=== PATIENT | female | born 1950 | race Caucasian/White ===

== ENCOUNTER 2016-08-18 10:53 | Outpatient (CLI) | payer MEDICAID | END 2016-08-18 10:54 | disposition home or self-care (01) | DX: R05 Cough (principal); R50.9 Fever, unspecified; C54.1 Malignant neoplasm of endometrium ==

== ENCOUNTER 2017-03-03 11:02 | Outpatient (CLI) | payer MEDICARE, MEDICAID | END 2017-03-03 11:03 | disposition critical access hospital (66) | LOC: EMS 11:02 | PROVIDERS: ATTEND Surgery | DX: R11.10 Vomiting, unspecified (principal); R19.7 Diarrhea, unspecified | CPT/HCPCS: A0425; A0429 ==

== ENCOUNTER 2017-03-03 11:19 | Emergency (ER) | payer MEDICARE, MEDICAID ==
[2017-03-03] MEDS ORDERED: SODIUM CHLORIDE 0.9% 1,000 ML IV ONE (12:07)
[2017-03-03] MEDS ORDERED: LOPERAMIDE 2 MG CAPSULE PO STA (12:07)
[2017-03-03] MEDS ORDERED: ONDANSETRON 4 MG/2 ML VIAL IVP STA (12:07)
--- NOTE | 2017-03-03 12:10 | ED Physician Documentation ---
PD HPI NVD - Stated complaint Stated Complaint: V/D - Chief complaint Chief Complaint: Abd Pain - History obtained from History obtained from: Patient - History of Present Illness Timing - onset: Other (66-year-old woman with hypertension, diabetes, and history of endometrial cancer, has completed as of a few months ago her chemotherapy and is in surveillance. Starting this morning after a smoothie she started having several episodes of vomiting and diarrhea. There is no associated abdominal pain but she does feel dizzy. She is on no blood from either end. No fevers or sick contacts.) Review of Systems Ten Systems: 10 systems reviewed and negative Constitutional: denies: Fever, Chills Cardiac: denies: Chest pain / pressure, Palpitations Respiratory: denies: Dyspnea, Cough GI: reports: Nausea, Vomiting, Diarrhea. 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 HEENT: Tonsil/Adenoidectomy - Present Medications Home Medications: Ambulatory Orders Medication Instructions Recorded Confirmed Acetaminophen [Pain Relief] 500 mg PO Q4H PRN 05/19/16 12/08/16 Cholecalciferol (Vitamin D3) 800 units PO DAILY 05/19/16 12/08/16 [Vitamin D3] Citalopram [CeleXA] 40 mg PO DAILY 05/19/16 12/08/16 Docusate Calcium [Carlito-Tin] 240 mg PO BID PRN 05/19/16 12/08/16 Fluticasone [Flonase] 1 spray INH DAILY PRN 05/19/16 12/08/16 Insulin Glargine [Lantus] 10 unit SUBQ QPM 05/19/16 12/08/16 Lisinopril [Zestril] 40 mg PO DAILY 05/19/16 12/08/16 Loratadine [Claritin] 10 mg PO DAILY 05/19/16 12/08/16 Ondansetron [Ondansetron Odt] 1 - 2 tab PO Q8H PRN 05/19/16 12/08/16 Polyethylene Glycol 3350 [Miralax] 17 gm PO DAILY PRN 05/19/16 12/08/16 Risperidone [Risperdal] 0.25 mg PO DAILY 05/19/16 12/08/16 Sennosides [Senna] 8.6 mg PO DAILY PRN 05/19/16 12/08/16 Simvastatin [Zocor] 40 mg PO QPM 05/19/16 12/08/16 buPROPion [Wellbutrin Sr] 100 mg PO BID 05/19/16 12/08/16 metFORMIN [Glucophage] 1,000 mg PO BID 05/19/16 12/08/16 raNITIdine [Zantac] 150 mg PO BID 05/19/16 12/08/16 Carvedilol [Coreg] 25 mg PO BID tablet 06/11/16 12/08/16 buPROPion [Wellbutrin Sr] 100 mg PO BID tablet 06/11/16 12/08/16 Clopidogrel [Plavix] 75 mg PO DAILY 06/23/16 12/08/16 Prochlorperazine Maleate 10 mg PO Q6H PRN 07/01/16 12/08/16 [Compazine] Ciprofloxacin HCl [Cipro] 500 mg PO BID #14 tablet 03/03/17 Loperamide [Imodium] 2 mg PO QID PRN #10 capsule 03/03/17 Promethazine [Phenergan] 25 - 50 mg PO Q6H PRN #15 tab 03/03/17 - Allergies Allergies/Adverse Reactions: Allergies Allergy/AdvReac Type Severity Reaction Status Date / Time Penicillins Allergy Anaphylaxis Verified 03/03/17 11:35 - Social History Does the pt smoke?: No Smoking Status: Never smoker Does the pt drink ETOH?: No Does the pt have substance abuse?: No - Family History Family history: reports: Non contributory - Immunizations Immunizations are current?: Yes PD ED PE NORMAL - Vitals Vital signs reviewed: Yes (She is hypotensive but not tachycardic) - General General: Alert and oriented X 3, No acute distress - HEENT HEENT: PERRL, EOMI - Neck Neck: Supple, no meningeal sign, No bony TTP - Cardiac Cardiac: RRR, No murmur - Respiratory Respiratory: No respiratory distress, Clear bilaterally - Abdomen Abdomen: Soft, Non tender - Derm Derm: Normal color, Warm and dry - Extremities Extremities: No edema, No calf tenderness / cord - Neuro Neuro: Alert and oriented X 3, No motor deficit, No sensory deficit - Psych Psych: Normal mood, Normal affect Results - Vitals Vitals: Vital Signs - 24 hr 03/03/17 03/03/17 03/03/17 11:31 11:45 12:00 Temperature 36.7 C Heart Rate 87 88 78 Respiratory 14 20 18 Rate Blood Pressure 76/48 L 78/47 L 76/46 L O2 Saturation 92 92 95 03/03/17 03/03/17 03/03/17 12:15 13:21 14:27 Temperature Heart Rate 80 71 70 Respiratory 20 20 18 Rate Blood Pressure 76/46 L 120/58 L 142/53 H O2 Saturation 97 97 96 Oxygen O2 Source Room air - EKG (time done) 1227 Rate: Rate (enter#) (79) Rhythm: NSR Hawkins: Normal QRS: Low voltage Ischemia: Normal ST segments. No: ST elevation c/w ischemia Computer interpretation: Agree with computer - Labs Labs: Laboratory Tests 03/03/17 03/03/17 03/03/17 12:50 12:55 12:55 WBC 18.0 H RBC 4.22 Hgb 14.0 Hct 42.7 MCV 101.2 H MCH 33.3 H MCHC 32.9 RDW 17.6 H Plt Count 252 MPV 7.5 L Neut # 15.3 H Lymph # 1.6 [place] # 1.0 Eos # 0.1 Baso # 0.0 Absolute Nucleated RBC 0.02 Nucleated RBCs 0.1 D-Dimer Sodium 141 Potassium 4.8 Chloride 111 Carbon Dioxide 20 L Anion Gap 10.0 BUN 23 H Creatinine 1.3 H Estimated GFR (MDRD) 41 L Glucose 165 H Lactic Acid Calcium 9.2 Magnesium 1.4 L Total Bilirubin 0.7 AST 15 ALT < 10 L Alkaline Phosphatase 53 Troponin I < 0.04 Total Protein 6.4 L Albumin 3.6 Globulin 2.8 Albumin/Globulin Ratio 1.3 Lipase 35 Urine Color Urine Clarity Urine pH Ur Specific [place] Urine Protein Urine Glucose (UA) Urine Ketones Urine Occult Blood Urine Nitrite Urine Bilirubin Urine Urobilinogen Ur Leukocyte Esterase Urine RBC Urine WBC Ur Squamous Epith Cells Urine Crystals Urine Bacteria Urine Mucus Ur Microscopic Review Urine Culture Comments 03/03/17 03/03/17 03/03/17 12:55 14:28 14:45 WBC RBC Hgb Hct MCV MCH MCHC RDW Plt Count MPV Neut # Lymph # [place] # Eos # Baso # Absolute Nucleated RBC Nucleated RBCs D-Dimer > 1050.0 H Sodium Potassium Chloride Carbon Dioxide Anion Gap BUN Creatinine Estimated GFR (MDRD) Glucose Lactic Acid 2.2 Calcium Magnesium Total Bilirubin AST ALT Alkaline Phosphatase Troponin I Total Protein Albumin Globulin Albumin/Globulin Ratio Lipase Urine Color DARK YELLOW Urine Clarity CLOUDY Urine pH 6.0 Ur Specific [place] 1.025 Urine Protein TRACE Urine Glucose (UA) NEGATIVE Urine Ketones NEGATIVE Urine Occult Blood MODERATE H Urine Nitrite NEGATIVE Urine Bilirubin NEGATIVE Urine Urobilinogen 0.2 (NORMAL) Ur Leukocyte Esterase SMALL H Urine RBC 0-5 Urine WBC 6-10 H Ur Squamous Epith Cells MANY Squamous H Urine Crystals 0-2 Calcium Oxalate Urine Bacteria Many H Urine Mucus Few Strands Ur Microscopic Review INDICATED Urine Culture Comments NOT INDICATED - Rads (name of study) CT Angio chest Radiology: EMP read contemporaneously (neg for at least large PE) PD MEDICAL DECISION MAKING - ED course ED course: 66-year-old woman with history of endometrial cancer presents with vomiting and diarrhea. Initially she is noted to be borderline hypoxic and hypotensive. The hypoxemia was a single reading in the hypotension easily responded to fluids. She was administered IV fluids, Zofran, Imodium. She felt much better. She was noted to have a leukocytosis and evidence of UTI which was treated with Cipro, her d-dimer was high but her chest CT was grossly negative. She passed an oral challenge and requested discharge. Departure - Departure Disposition: 01 Home, Self Care Clinical Impression: Vomiting Qualifiers: Vomiting type: unspecified Vomiting Intractability: non-intractable Nausea presence: with nausea Qualified Code(s): R11.2 - Nausea with vomiting, unspecified Diarrhea Qualifiers: Diarrhea type: unspecified type Qualified Code(s): R19.7 - Diarrhea, unspecified Hypotension Qualifiers: Hypotension type: unspecified hypotension type Qualified Code(s): I95.9 - Hypotension, unspecified Urinary tract infection Qualifiers: Urinary tract infection type: acute pyelonephritis Qualified Code(s): N10 - Acute pyelonephritis Condition: Good Record reviewed to determine appropriate education?: Yes Instructions: ED Diarrhea Viral Prescriptions: Ciprofloxacin HCl [Cipro] 500 mg PO BID #14 tablet Loperamide [Imodium] 2 mg PO QID PRN #10 capsule PRN Reason: Diarrhea Promethazine [Phenergan] 25 - 50 mg PO Q6H PRN #15 tab PRN Reason: Nausea / Vomiting Comments: Drink plenty of fluids. Return anytime if worse or if you run a high fever. Call your doctor to arrange a follow-up appointment, make the next available appointment.
[2017-03-03] MEDS ORDERED: SODIUM CHLORIDE FLUSH 0.9% 10 ML SYRINGE IVP ONE (12:14)
[2017-03-03] MEDS ORDERED: ONDANSETRON 4 MG/2 ML VIAL ONE (12:41)
[2017-03-03] MEDS ORDERED: LOPERAMIDE 2 MG CAPSULE PO ONE (12:41)
[2017-03-03 13:03] LABS: BASOPHILS % (AUTO) 0.3 %; EOSINOPHILS # (AUTO) 0.1 10^3/uL (0.0-0.7); EOSINOPHILS % (AUTO) 0.4 %; HCT - HEMATOCRIT 42.7 % (37.0-47.0); LYMPHOCYTES # (AUTO) 1.6 10^3/uL (1.5-3.5); LYMPHOCYTES % (AUTO) 8.9 %; MEAN CORPUSCULAR HEMOGLOBIN 33.3 pg (27.0-31.0); MEAN CORPUSCULAR HGB CONC 32.9 g/dL (32.0-36.0); MEAN CORPUSCULAR VOLUME 101.2 fL (81.0-99.0); MEAN PLATELET VOLUME 7.5 fL (7.9-10.8); MONOCYTES % (AUTO) 5.4 %; NEUTROPHILS # (AUTO) 15.3 10^3/uL (1.5-6.6); NUCLEATED RED BLOOD CELLS AUTO 0.1 /100WBC; RED BLOOD COUNT 4.22 10^6/uL (4.20-5.40); RED CELL DISTRIBUTION WIDTH 17.6 % (12.0-15.0)
[2017-03-03 13:12] LABS: ALBUMIN/GLOBULIN RATIO 1.3 (1.0-2.2); BILIRUBIN,TOTAL 0.7 mg/dL (0.2-1.0); BUN - BLOOD UREA NITROGEN 23 mg/dL (6-20); CALCIUM 9.2 mg/dL (8.5-10.3); CARBON DIOXIDE - CO2 20 mmol/L (21-32); CHLORIDE 111 mmol/L (101-111); CREATININE 1.3 mg/dL (0.4-1.0); GFR - MDRD 41 (>89); GLUCOSE 165 mg/dL (70-100); LIPASE 35 U/L (22-51); MAGNESIUM 1.4 mg/dL (1.7-2.8); POTASSIUM 4.8 mmol/L (3.5-5.0); SODIUM 141 mmol/L (135-145); TOTAL PROTEIN 6.4 g/dL (6.7-8.2)
[2017-03-03] MEDS ORDERED: MAGNESIUM SULFATE 2 GRAM 50 ML IV ONE ×2 (14:13→14:20)
[2017-03-03] MEDS ORDERED: IOPAMIDOL-300 100 ML VIAL IVP ONE (14:30)
--- NOTE | 2017-03-03 15:00 | CT Preliminary Report ---
Exam: CT Chest Angio (PE) IMPRESSION: 1. Normal pulmonary CT angiogram. No pulmonary emboli. 2. Remote left nephrectomy. [facility] SITE ID: [id number]
[2017-03-03 15:12] LABS: BILIRUBIN,URINE NEGATIVE (NEGATIVE); UA w/ MICROSCOPIC CHARGE YES
--- NOTE | 2017-03-03 15:14 | CT Report ---
EXAM: CT ANGIOGRAM CHEST EXAM DATE: 03/03/2017 02:39 PM. CLINICAL HISTORY: Hypoxemia, hypotension, endometrial cancer. (Chemotherapy 2 months ago.) Vomiting. COMPARISON: 06/11/2016. TECHNIQUE: Routine helical imaging was performed through the chest in the pulmonary arterial phase. I V Contrast: 50 cc Isovue-300. Please note this lady was unable to raise her arms. Reconstructions: [facility] 3-D MIP reconstructions.Sagittal and coronal. In accordance with CT protocol optimization, one or more of the following dose reduction techniques w ere utilized for this exam: automated exposure control, adjustment of mA and/or KV based on patient s ize, or use of iterative reconstructive technique. FINDINGS: Pulmonary Arteries: Diagnostic quality: Adequate through the segmental arteries. No evidence for acute or chronic pulmona ry emboli. RV/LV is within normal limits. There is no interventricular septal bowing. There is no reflux of cont rast material in the IVC. Lungs/Pleura: No consolidation, nodules, or edema. No effusions or pneumothorax. Mediastinum: Normal. No cardiac enlargement or adenopathy. Thoracic Aorta: Unremarkable. Upper Abdomen: Left nephrectomy. Visualized portion of the right kidney unremarkable. Other: None. IMPRESSION: 1. Normal pulmonary CT angiogram. No pulmonary emboli. 2. Remote left nephrectomy. [facility] Referring Provider Line: [phone] SITE ID: [id number]
[2017-03-03 15:25] LABS: UR CULTURE IF IND NOT INDICATED
[2017-03-03] MEDS ORDERED: CIPROFLOXACIN 250 MG TABLET PO STA (15:31)
[2017-03-03 16:45] VITALS: BP 127/43
== END 2017-03-03 16:45 | disposition home or self-care (01) ==
LOC: EDUNIT# → ED 11:19
DX: R11.2 Nausea with vomiting, unspecified (principal); R19.7 Diarrhea, unspecified; I95.9 Hypotension, unspecified; N10 Acute pyelonephritis; I10 Essential (primary) hypertension; G81.90 Hemiplegia, unspecified affecting unspecified side; E78.00 Pure hypercholesterolemia, unspecified; E11.9 Type 2 diabetes mellitus without complications; Z79.4 Long term (current) use of insulin; Z86.73 Personal history of transient ischemic attack (TIA), and cerebral infarction without residual deficits; Z85.9 Personal history of malignant neoplasm, unspecified
CPT/HCPCS: 36415; 71275; 80053; 81001; 83605; 83690; 83735; 84484; 85025; 85379; 87077; 87086; 87181; 93005; 96374; 96375; 99284; 99285; A9270; Q9967; 81003

== ENCOUNTER 2017-03-25 13:00 | Outpatient (CLI) | payer MEDICARE, MEDICAID ==
--- NOTE | 2017-03-25 19:06 | CONSULTATION NOTE ---
Palliative Care Consultation - Referral Referring Provider: JOHN Mckee Time of Visit: 13:00 Referral setting: Home (andSeen in home setting, which is [facility], due to taxing and considerable effort required to leave the home secondary to L hemiparesis s/p CVA, incontinence, and difficulty following instructions.) - Information Sources History obtained from: Patient, Caregiver Exam limitations: Clinical condition (Expressive aphasia) - History of Present Illness Brief History of Present Illness: Thank you, JOHN Mckee, for asking the palliative care consult service to be involved in the care of your patient. I am asked to provide support regarding medicine review and reconciliation, symptom management, intermittent followup as needed, and goals of care. 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 In May 2016 she was diagnosed with endometrial cancer and underwent surgical incision. She had a port placed 06/11/2017 and subsequent weekly chemotherapy of carbo-Taxol for 12 weeks completed 09/08/2016. This was with Dr. Louis at [facility]. The patient and her family decided to not pursue adjuvant radiation therapy. Her last followup visit with Dr. Louis was 12/08/2016, and she was to have moved onto surveillance with her housekeeping room inspector/oncologist from [facility], however, getting transportation to the clinic is problematic. She will see Dr. Louis only as needed in the future. She was most recently at the ED on 03/03/2017 for nausea and vomiting, and was diagnosed with a UTI and treated with ciprofloxacin twice a day for 7 days and loperamide and promethazine for diarrhea and nausea/vomiting. Normally with a UTI she becomes symptomatic with seizures; however, with this UTI episode, she exhibited vomiting and diarrhea. Today she is pleasant, alert, relaxed, and cooperative. She is mobile with a walker She denies musculoskeletal pain, reporting that she isnot in pain since participating [facility]. Her left side hemiparesis and expressive aphasia are stable. She is incontinent of bladder, the court registry officer reports it is because she is "lazy" and does not want to get up from her chair. Resident reports she spends her time watching TV in her room. She has occasional nausea which is alleviated with her PRN medications. She also has intermittent loose stools, diarrhea, and hemorrhoids relieved by PRN medications. Sheet Turner reports the patient does not do well with changes in her routine and does not follow directions well, so getting her out of the [facility] and to clinic appointments is very taxing and considerable effort. Also her daughter does not drive or have a car. Patient states she has no concerns or worries, and that she is satisfied with her quality of life. Her daughter visits her about once a week. Information was obtained from patient, caretaking staff, and the EMR chart notes from ED. Medical/Surgical History - Past Medical History Cardiovascular: reports: Hypertension, High cholesterol Respiratory: reports: Sleep apnea Neuro: reports: CVA, Seizure disorder Endocrine/Autoimmune: reports: Type 2 diabetes GI: reports: GERD, Hemorrhoids NURSE PRACTICAL: reports: Other (Endometrial cancer 05/2016, treated with carbo-Taxol for 12 weeks, completed 09/08/2016.) : reports: Incontinence, Other (CKD III) HEENT: reports: Chronic vision loss Psych: reports: Depression Musculoskeletal: reports: Hemiplegia Derm: reports: None MRSA Hx?: No - Past Surgical History General: reports: Colonoscopy, Other (Unilateral nephrectomy - accident 1963) /NURSE PRACTICAL: reports: Hysterectomy, Oophrectomy (bilateral salpingo-oophorectomy 2015) HEENT: reports: Tonsil/Adenoidectomy - Substance History Use: Uses substance without health or social issues: NONE (Never smoker, no ETOH , no substance abuse) Social History - Living Situation Living arrangement: prison (Has been living at [facility] for at least 8 years) Living Situation: With caregiver(s) Support System: Daughter lives locally in [place]. Visits her weekly. Medications/Allergies - Medications Home Medications: Ambulatory Orders Medication Instructions Recorded Confirmed Acetaminophen [Pain Relief] 500 mg PO Q4H PRN 05/19/16 03/25/17 Cholecalciferol (Vitamin D3) 800 units PO DAILY 05/19/16 03/25/17 [Vitamin D3] Citalopram [CeleXA] 40 mg PO DAILY 05/19/16 03/25/17 Fluticasone [Flonase] 1 spray INH DAILY PRN 05/19/16 03/25/17 Insulin Glargine [Lantus] 10 unit SUBQ QPM 05/19/16 03/25/17 Lisinopril [Zestril] 40 mg PO DAILY 05/19/16 03/25/17 Loratadine [Claritin] 10 mg PO DAILY 05/19/16 03/25/17 Ondansetron [Ondansetron Odt] 1 - 2 tab PO Q8H PRN 05/19/16 03/25/17 Polyethylene Glycol 3350 [Miralax] 17 gm PO DAILY PRN 05/19/16 03/25/17 Risperidone [Risperdal] 0.25 mg PO DAILY 05/19/16 03/25/17 Sennosides [Senna] 8.6 mg PO DAILY PRN 05/19/16 03/25/17 Simvastatin [Zocor] 40 mg PO QPM 05/19/16 03/25/17 buPROPion [Wellbutrin Sr] 100 mg PO BID 05/19/16 03/25/17 metFORMIN [Glucophage] 1,000 mg PO BID 05/19/16 03/25/17 raNITIdine [Zantac] 150 mg PO BID 05/19/16 03/25/17 Carvedilol [Coreg] 25 mg PO BID tablet 06/11/16 03/25/17 Clopidogrel [Plavix] 75 mg PO DAILY 06/23/16 03/25/17 Prochlorperazine Maleate 10 mg PO Q6H PRN 07/01/16 03/25/17 [Compazine] Loperamide [Imodium] 2 mg PO QID PRN #10 capsule MDD 8 03/03/17 03/25/17 tabs Anusol/Hydrocortisone Rectal Cream 1 each TOP DAILY PRN 03/26/17 03/26/17 - Allergies Allergies/Adverse Reactions: Allergies Allergy/AdvReac Type Severity Reaction Status Date / Time Penicillins Allergy Anaphylaxis Verified 03/03/17 11:35 Review of Systems - Ears, Nose & Throat Ears, Nose & Throat: reports: Other (Episodic sinus pain/headache, R side of head/face) - Cardiovascular Cariovascular: denies: Chest pain, Edema, Exertional dyspnea, Decr. exercise tolerance - Respiratory Respiratory: denies: SOB at rest, SOB with exertion - Gastrointestinal Gastrointestinal: reports: Diarrhea, Nausea (episodic). denies: Vomiting, Poor appetite - Genitourinary Genitourinary: reports: Incontinence. denies: Dysuria - Musculoskeletal Musculoskeletal: denies: Muscle pain (Denies musculoskeletal pain since starting exercise program at her [facility].), Back pain - Neurological Neurological: reports: Focal weakness (left side weakness s/p distant CVA event) , Headache (occasional sinus headaches), Other (problems finding words. They're "in my head, but I can't say them."). denies: Memory problems - Psychiatric Psychiatric: denies: Depression, Anxiety Physical Examination - Vital Signs Temperature: 96.9 F Pulse Rate: 57 O2 Saturation: 95 Blood Pressure: 135/85 - Physical Exam General Appearance: positive: No acute distress, Alert Eyes Bilateral: positive: EOMI, No lid inflammation, Conjunctivae nml, No scleral icterus ENT: positive: No signs of dehydration Neck: positive: No JVD, Trachea midline Respiratory: positive: No respiratory distress, Breath sounds nml Cardiovascular: positive: Regular rate & rhythm, No murmur Abdomen: positive: Non-tender, No organomegaly, Nml bowel sounds, Other (obese) Skin: positive: No symptoms Extremities: positive: Pedal edema (very mild ankle edema) Neurologic/Psychiatric: positive: Mood/affect nml, Slurred/abnml speech ( Significant word search and expressive aphasia, secondary to CVA) Palliative Care - POLST Patient has POLST: Yes POLST Status: Full Code Pain: No pain Drowsiness: None Nausea: Mild (1-3) Anxiety: None Dyspnea: None Anorexia: None Insomnia: Sleeps well Constipation: No Feelings of wellbeing/Perceived Quality of Life: Comment (Perceives she has a good quality of life and likes living here.) Performance Status: Current level of functioning: Left-sided hemiparesis and expressive aphasia s/p CVA in 2009. Ambulates with a walker. Incontinent, but this may be "involuntary " as she has been able to control her urination when motivated (for example, when rewarded with soda pop). Once the reward system was discontinued, she became unmotivated and was incontinent again. Palliative Care Performance Status: 60% - Palliative Care Discussion: Patient/Family understanding of the illness: Patient likely has mild dementia, but has some understanding of her health situation, and her history of stroke and cancer. It is difficult to determine the extent of her insight due to her significant expressive aphasia. Information preferences: Contact daughter prior to planned visits. Daughter did not respond to my voicemail this time. Most important goals: Patient is still making her medical decisions, in consultation with her daughter. Today we discussed her goals and wishes, and she confirmed that she would want full treatment and is agreeable to hospitalization if necessary. Her POLST was dated from 2009, CPR and full code, and she confirmed she is satisfied with that. Patient/Family concerns: Patient had no questions or concerns today. The caregivers concern was obtaining some medical oversight and ability to reorder medicines since it is a taxing and considerable effort for the patient to get to the clinic. Impression and Recommendations - Palliative Care Impression: This is a 66-year-old woman who underwent 12 weeks of chemotherapy for endometrial cancer earlier this year. She also has residual effects from a 2009 CVA, these include left-sided hemiparesis and expressive aphasia. She is incontinent and has a history of UTIs. She has no urgent medical issues presently, but because of her history of cancer, and the taxing and considerable effort of getting her to clinic for medical care, she can benefit from palliative care for medical oversight, medicine reconciliation, and support for advanced care planning. Recommendations/Counseling Done: 1. History of endometrial cancer: Chemotherapy successfully completed 6 months ago. Stable and asymptomatic. She has a housekeeping room inspector/oncologist at but is not currently following up due to transport issues. Monitor, and follow up with Dr Louis as needed. 2. Loose stools: Episodic. Use imodium as needed. 3. Hemorrhoids: Stable, episodic. Use Anusol (hydrocortisone cream) as needed. 4. Advanced care planning: Reviewed with patient her POLST dated from 2009, she confirmed her wishes had not changed, and signed it. Reconciled medications, wrote new scripts for 8 of the medications. Time Spent: 60 minutes with greater than 50% of this done in coordination of care with court registry officer, evaluation of symptom burden and counseling regarding advanced care planning.
== END 2017-03-25 13:01 | disposition home or self-care (01) ==
LOC: PC 13:00
PROVIDERS: ATTEND Nurse Practitioner
DX: Z51.5 Encounter for palliative care (principal); Z85.42 Personal history of malignant neoplasm of other parts of uterus; R19.7 Diarrhea, unspecified; K64.9 Unspecified hemorrhoids; I69.320 Aphasia following cerebral infarction; R32 Unspecified urinary incontinence; R11.0 Nausea; I10 Essential (primary) hypertension; E11.9 Type 2 diabetes mellitus without complications; F32.9 Major depressive disorder, single episode, unspecified; Z79.4 Long term (current) use of insulin; Z79.84 Long term (current) use of oral hypoglycemic drugs

== ENCOUNTER 2017-07-30 15:58 | Outpatient (CLI) | payer MEDICARE, MEDICAID ==
--- NOTE | 2017-07-30 16:09 | CONSULTATION NOTE ---
Palliative Care Follow Up - Referral Referring Provider: JOHN Mckee Time of Visit: 07/30/17 11:35 - 12:15 Referral setting: Adult Family Home (Seen in home setting, which is an adult family home, due to taxing and considerable effort required to leave the home secondary to L hemiparesis s/p CVA, incontinence, and difficulty following instructions.) - Information Sources Records reviewed: Previous records reviewed History/Review of Systems obtained from: Patient, Caregiver Exam limitations: Clinical condition (expressive aphasia) - History of Present Illness Update Brief HPI Update: This is a 66-year-old woman with a history of endometrial cancer from May 2016 and a 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 She continues at her baseline, being alert, pleasant, articulate within the parameters of her expressive aphasia, and cooperative. She reports being very happy with her quality of life. She participates in the morning exercise classes 5 days per week which are sponsored by the [facility] where she resides. These classes work on strengthening and mobility of upper and lower extremities, and she finds she is more ambulatory and less stiff and painful since participating in these classes. The caregiver reports she is at baseline for her incontinence of bladder (she cannot tell when she needs to go to the bathroom until it is too late, and she also suffers from urge incontinence). She also has occasional stress incontinence of bowel, which happens when laughing or coughing. She also reports a new, dry cough. Her appetite is good, and her weight is stable, ranging from 220 - 225 lbs. Her waist measurement is 121 cm (47.5 inches) and hip 138.5cm (54.5 inches), a yqjsf-rh-gzs ratio of 0.87, which puts her at high risk of developing heart disease and DM2. With the participation of the [facility] marketing outreach coordinator, I completed a pre-authorization request from [employer] for incontinence supplies, along with a letter of medical necessity and faxed it back to the supply company. Social History - Living Situation Living arrangement: Adult family home ([facility] in [place]) Living Situation: With caregiver(s) Support System: Has been living at [facility] for many years. Daughter lives locally in [place] and visits regularly. Medications/Allergies - Medications Home Medications: Ambulatory Orders Medication Instructions Recorded Confirmed Acetaminophen [Pain Relief] 500 mg PO Q4H PRN 05/19/16 03/25/17 Cholecalciferol (Vitamin D3) 800 units PO DAILY 05/19/16 03/25/17 [Vitamin D3] Citalopram [CeleXA] 40 mg PO DAILY 05/19/16 03/25/17 Fluticasone [Flonase] 1 spray INH DAILY PRN 05/19/16 03/25/17 Insulin Glargine [Lantus] 10 unit SUBQ QPM 05/19/16 03/25/17 Lisinopril [Zestril] 40 mg PO DAILY 05/19/16 03/25/17 Loratadine [Claritin] 10 mg PO DAILY 05/19/16 03/25/17 Ondansetron [Ondansetron Odt] 1 - 2 tab PO Q8H PRN 05/19/16 03/25/17 Polyethylene Glycol 3350 [Miralax] 17 gm PO DAILY PRN 05/19/16 03/25/17 Sennosides [Senna] 8.6 mg PO DAILY PRN 05/19/16 03/25/17 Simvastatin [Zocor] 40 mg PO QPM 05/19/16 03/25/17 buPROPion [Wellbutrin Sr] 100 mg PO BID 05/19/16 03/25/17 metFORMIN [Glucophage] 1,000 mg PO BID 05/19/16 03/25/17 raNITIdine [Zantac] 150 mg PO BID 05/19/16 03/25/17 risperiDONE [Risperdal] 0.25 mg PO DAILY 05/19/16 03/25/17 Carvedilol [Coreg] 25 mg PO BID tablet 06/11/16 03/25/17 Clopidogrel [Plavix] 75 mg PO DAILY 06/23/16 03/25/17 Prochlorperazine Maleate 10 mg PO Q6H PRN 07/01/16 03/25/17 [Compazine] Loperamide [Imodium] 2 mg PO QID PRN #10 capsule MDD 8 03/03/17 03/25/17 tabs Anusol/Hydrocortisone Rectal Cream 1 each TOP DAILY PRN 03/26/17 03/26/17 Benzonatate 100 mg PO TID PRN 07/30/17 07/30/17 Guaifenesin [Tussin] 10 ml PO .Q4-6HRS PRN 07/30/17 07/30/17 - Allergies Allergies/Adverse Reactions: Allergies Allergy/AdvReac Type Severity Reaction Status Date / Time Penicillins Allergy Anaphylaxis Verified 03/03/17 11:35 Review of Systems - Constitutional Constitutional: reports: Weight stable (Ranges between 220 - 225 lbs. Her waist is 121 cm (47.5 inches) and hip is 138.5cm (54.5 inches)). denies: Poor appetite - Ears, Nose & Throat Ears, Nose & Throat: reports: Postnasal drainage, Other (episodic headaches, relieved with Tylenol) - Cardiovascular Cardiovascular: denies: Chest pain, Exertional dyspnea, Decr. exercise tolerance - Respiratory Respiratory: reports: Cough. denies: SOB at rest, SOB with exertion - Gastrointestinal Gastrointestinal: reports: Good appetite. denies: Constipation, Diarrhea, Nausea, Vomiting - Genitourinary Genitourinary: reports: Urgency (occasional stress incontinence), Incontinence. denies: Dysuria, Flank pain - Musculoskeletal Musculoskeletal: reports: Assistive devices (supposed to use cane, but often doesn't). denies: Back pain, Muscle aches (the regular exercise program really helps), Stiffness - Psychiatric Psychiatric: denies: Depression, Behavior disturbances Physical Exam - Vital Signs Temperature: 97.4 F Pulse Rate: 71 O2 Saturation: 97 Blood Pressure: 138/90 - Physical Exam General Appearance: positive: No acute distress, Alert Eyes Bilateral: positive: EOMI, No lid inflammation, Conjunctivae nml, No scleral icterus ENT: positive: No signs of dehydration Neck: positive: Thyroid nml, No JVD, Trachea midline Cardiovascular: positive: Regular rate & rhythm, No murmur Respiratory: positive: Chest non-tender, No respiratory distress, Breath sounds nml Abdomen: positive: Soft, Obese Skin: positive: No symptoms Extremities: positive: Nml appearance, Pedal edema (mild, +1) Neurologic/Psychiatric: positive: Oriented x3, Mood/affect nml, Slurred/abnml speech (aphasia; word search) Palliative Care - POLST Patient has POLST: Yes POLST Status: Full Code Pain: No pain Depression: None Anorexia: None Constipation: No Feelings of wellbeing/Perceived Quality of Life: Good - Palliative Care Discussion: POLST is full code and full treatment. I left a voicemail with the daughter outlining the purpose and results of the visit and invited her to call back with questions and concerns. There are no changes or alterations to the patient 's goals of care. She is currently quite content with her quality of life and has no medical or psychological concerns or questions. Impression and Recommendations - Palliative Care Impression: This is a 66-year old woman who lives with residual effects from a 2009 CVA: L side hemiparesis and expressive aphasia. She also underwent chemotherapy treatment about a year ago. She is stable at her baseline, and her POLST is full code. Her weight is excessive, and her zscwe-pv-gqx ratio of 0.87 puts her at high risk to develop coronary and diabetic disease. She would benefit from maintaining a health diet, practicing portion control, decreasing consumption of sweets and soda pop. She benefits from continued participation in the exercise program provided by the adult family [facility], as well as Palliative Care oversight since it is a taxing and considerable effort to leave the adult family home. Recommendations/Counseling Done: Overweight: The patient's zqaqd-cl-juy ratio (0.87) puts her at high risk of developing coronary disease and Type 2 diabetes. She would benefit from altering her diet to lose some weight particularly abdominal fat, by portion control, decreasing intake of sweet and sweet drinks (including fruit juices), and continuing with the exercise program provided by the facility. Incontinence of bladder: Signed and returned [employer]'s preauthorization forms and request for a letter of medical necessity. This is for supplies of adult briefs, gloves, and protective pads. Cough, acute: Ordered guaifenesin 100mg/5ml. 10ml PO Q4-6 hours as needed and benzonatate 100 mg cap, 1 cap PO TID prn for cough. Advanced care planning: Patient's goals of care are prolongation of life, and full code treatment. She expresses satisfaction with her quality of life at [facility]. Time Spent: 40 minutes were spent with more than 50% of the time spent on counseling, education, and coordination of care.
== END 2017-07-30 15:59 | disposition home or self-care (01) ==
LOC: PC 15:58
PROVIDERS: ATTEND Nurse Practitioner
DX: Z51.5 Encounter for palliative care (principal); E66.9 Obesity, unspecified; R32 Unspecified urinary incontinence; R05 Cough; I69.354 Hemiplegia and hemiparesis following cerebral infarction affecting left non-dominant side; I69.320 Aphasia following cerebral infarction; Z85.89 Personal history of malignant neoplasm of other organs and systems

== ENCOUNTER 2017-11-12 16:16 | Outpatient (CLI) | payer MEDICARE, MEDICAID ==
[2017-11-12 13:05] LABS: BASOPHILS # (AUTO) 0.1 10^3/uL (0.0-0.1); BASOPHILS % (AUTO) 0.6 %; EOSINOPHILS # (AUTO) 0.2 10^3/uL (0.0-0.7); EOSINOPHILS % (AUTO) 2.3 %; HGB - HEMOGLOBIN 12.6 g/dL (12.0-16.0); LYMPHOCYTES # (AUTO) 1.4 10^3/uL (1.5-3.5); LYMPHOCYTES % (AUTO) 13.6 %; MEAN CORPUSCULAR HEMOGLOBIN 34.5 pg (27.0-31.0); MEAN CORPUSCULAR HGB CONC 33.5 g/dL (32.0-36.0); MEAN CORPUSCULAR VOLUME 102.9 fL (81.0-99.0); MEAN PLATELET VOLUME 8.1 fL (7.9-10.8); MONOCYTES # (AUTO) 0.9 10^3/uL (0.0-1.0); MONOCYTES % (AUTO) 8.8 %; NEUTROPHILS # (AUTO) 7.5 10^3/uL (1.5-6.6); NEUTROPHILS % (AUTO) 74.7 %; PLT - PLATELET COUNT 254 10^3/uL (130-450); RED BLOOD COUNT 3.65 10^6/uL (4.20-5.40); RED CELL DISTRIBUTION WIDTH 15.9 % (12.0-15.0)
[2017-11-12 13:16] LABS: HB2 TOTAL 13.7 g/dL; HEMOGLOBIN A1C 0.52 g/dL; HEMOGLOBIN A1C % 5.6 % (4.6-6.2)
[2017-11-12 13:34] LABS: ALBUMIN 3.8 g/dL (3.2-5.5); ALBUMIN/GLOBULIN RATIO 1.2 (1.0-2.2); ALKALINE PHOSPHATASE 54 IU/L (42-121); ALT ALANINE AMINOTRANSFERASE 10 IU/L (10-60); AST ASPARTATE AMINOTRANSFERASE 18 IU/L (10-42); BILIRUBIN,TOTAL 0.6 mg/dL (0.2-1.0); BUN - BLOOD UREA NITROGEN 28 mg/dL (6-20); CALCIUM 9.2 mg/dL (8.5-10.3); CARBON DIOXIDE - CO2 22 mmol/L (21-32); CHLORIDE 108 mmol/L (101-111); CHOLESTEROL 158 mg/dL; CREATININE 1.3 mg/dL (0.4-1.0); GFR - MDRD 41 (>89); GLUCOSE 109 mg/dL (70-100); HDL CHOLESTEROL 52 mg/dL; LDL CHOLESTEROL,CALCULATED 80 mg/dL; LDL/HDL RATIO 1.5 (<4.4); SODIUM 138 mmol/L (135-145); VLDL CHOLESTEROL 26 mg/dL
== END 2017-11-12 16:17 | disposition home or self-care (01) ==
LOC: LAB.N 16:16
PROVIDERS: ATTEND Nurse Practitioner Family
DX: I10 Essential (primary) hypertension (principal); E11.9 Type 2 diabetes mellitus without complications; E78.5 Hyperlipidemia, unspecified
CPT/HCPCS: 36415; 80053; 80061; 82043; 83036; 83721; 84443; 85025

== ENCOUNTER 2018-07-20 13:20 | Outpatient (CLI) | payer MEDICARE, MEDICAID ==
--- NOTE | 2018-07-20 18:25 | CONSULTATION NOTE ---
Palliative Care Follow Up - Referral Referring Provider: JOHN Mckee Time of Visit: 07/20/2018. 13:20 - 14:00 Referral setting: Adult Family Home (Seen in home setting, which is an adult family home, due to taxing and considerable effort required to leave the home secondary to L hemiparesis s/p CVA, incontinence, and difficulty following instructions.) Referral Reason: Constipation and loose stools - Information Sources Records reviewed: Previous records reviewed History/Review of Systems obtained from: Patient, Caregiver Exam limitations: Clinical condition (Expressive aphasia) - History of Present Illness Update Brief HPI Update: This is a 66-year-old woman with a history of endometrial cancer from May 2016 and a 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 Medical history: h/o endometrial cancer (dx May 2016); DM II, h/o CVA/stroke (2008); CKD III; seizure disorder; HTN; HLD. She remains at her baseline: alert, pleasant, articulate within the parameters of her expressive aphasia, and cooperative. She is ambulatory with a cane, but often doesn't use it. Provided education and encouragement on consistently using it in the house. She has occasional N/V. She had projectile vomiting twice last week within a short time period. She re cuperated and has been fine since then. She is at her baseline confusion and short-term memory deficit. She is incontinent of bowel/bladder. She has moments of lightheadedness. [facility] dentist/owner reports BPs are consistently within normal ranges of 110s-130s, 80s- 90s. Patient reports heartburn symptoms and would like Tums. She also uses ranitidine daily. She has sleep apnea but doesn't like the CPAP and has never used it while the current dentist/owner has been here Family visits her on most . She is cheerful, appears content and is enjoying having the [facility] dentist/owner's baby around the residence. She has a good appetite and has gained weight (see ROS). [facility] dentist/owner notes the weight gain started when their fruit coordinator started coming less. Now it's about 7 hours or less of activity per week instead of 12. Social History - Living Situation Living arrangement: Adult family home ([facility] [address] in [place]) Living Situation: With caregiver(s) Support System: Is a long-time resident of [facility], she was there prior to the current dentist/owner, so that's more than 7 years. Her daughter lives in [place] and visits usually on . Medications/Allergies - Medications Home Medications: Ambulatory Orders Medication Instructions Recorded Confirmed Acetaminophen [Pain Relief] 500 mg PO Q4H PRN 05/19/16 03/25/17 Cholecalciferol (Vitamin D3) 800 units PO DAILY 05/19/16 07/20/18 [Vitamin D3] Citalopram [CeleXA] 40 mg PO DAILY 05/19/16 07/20/18 Fluticasone [Flonase] 1 spray INH DAILY PRN 05/19/16 07/20/18 Insulin Glargine [Lantus] 10 unit SUBQ QPM 05/19/16 07/20/18 Lisinopril [Zestril] 40 mg PO DAILY 05/19/16 07/20/18 Loratadine [Claritin] 10 mg PO DAILY 05/19/16 07/20/18 Ondansetron [Ondansetron Odt] 1 - 2 tab PO Q8H PRN 05/19/16 07/20/18 Polyethylene Glycol 3350 [Miralax] 17 gm PO DAILY PRN 05/19/16 03/25/17 Sennosides [Senna] 8.6 mg PO DAILY PRN 05/19/16 03/25/17 Simvastatin [Zocor] 40 mg PO QPM 05/19/16 07/20/18 buPROPion [Wellbutrin Sr] 100 mg PO BID 05/19/16 07/20/18 metFORMIN [Glucophage] 1,000 mg PO QPM 05/19/16 07/20/18 raNITIdine [Zantac] 150 mg PO BID 05/19/16 07/20/18 risperiDONE [Risperdal] 0.25 mg PO DAILY 05/19/16 07/20/18 Carvedilol [Coreg] 25 mg PO BID tablet 06/11/16 07/20/18 Clopidogrel [Plavix] 75 mg PO DAILY 06/23/16 07/20/18 Loperamide [Imodium] 2 mg PO QID PRN #10 capsule MDD 8 03/03/17 03/25/17 tabs Anusol/Hydrocortisone Rectal Cream 1 each TOP DAILY PRN 03/26/17 03/26/17 Benzonatate 100 mg PO TID PRN 07/30/17 07/30/17 Guaifenesin [Tussin] 10 ml PO .Q4-6HRS PRN 07/30/17 07/30/17 metFORMIN [Glucophage] 500 mg PO .QAM 07/20/18 07/20/18 - Allergies Allergies/Adverse Reactions: Allergies Allergy/AdvReac Type Severity Reaction Status Date / Time Penicillins Allergy Anaphylaxis Verified 03/03/17 11:35 Review of Systems - Constitutional Constitutional: reports: Weight gain (238 lbs 07/03/18. 234 lbs 06/26/18. Her previous range was 220-225 lbs.). denies: Poor appetite - Ears, Nose & Throat Ears, Nose & Throat: reports: Postnasal drainage, Other (occasional headaches) - Cardiovascular Cardiovascular: denies: Chest pain, Exertional dyspnea - Respiratory Respiratory: denies: Cough, Wheezing, SOB at rest, SOB with exertion - Gastrointestinal Gastrointestinal: reports: Constipation (1-3 days), Diarrhea (loose stools after 1-3 days of constipation), Other (hemorroids; occasional lili rectal bleeds) - Genitourinary Genitourinary: reports: Incontinence (stress) - Musculoskeletal Musculoskeletal: reports: Assistive devices (4 footed cane), Other (denies pain). denies: Transfer issues - Neurological Neurological: reports: Memory problems - Psychiatric Psychiatric: denies: Depression, Behavior disturbances - Endocrine Endocrine: reports: Diabetes type 2 - Other Findings Other Findings: Limited ROS. Physical Exam - Vital Signs Temperature: 96.9 F Pulse Rate: 63 O2 Saturation: 99 (room air) Blood Pressure: 120/81 (wrist cuff) - Physical Exam General Appearance: positive: No acute distress, Alert Eyes Bilateral: positive: EOMI, No lid inflammation, Conjunctivae nml, No scleral icterus ENT: positive: No signs of dehydration Neck: positive: Trachea midline Cardiovascular: positive: Regular rate & rhythm, No murmur Respiratory: positive: Chest non-tender, No respiratory distress, Diminished throughout (probably due to body habitus) Abdomen: positive: Non-tender, Soft, Nml bowel sounds, Obese Skin: positive: No symptoms Extremities: positive: Pedal edema (1+, she elevates but doesn't use compression socks) Neurologic/Psychiatric: positive: Mood/affect nml, Disoriented to time Palliative Care - POLST Patient has POLST: Yes POLST Status: Full Code Pain: No pain Performance Status: ambulatory with cane, self transfers articulate and comprehends well, but limited communication due to expressive aphasia and word search - Palliative Care Discussion: Patient confirms that she wants to remain full code and full treatment. She enjoys her life at [facility]. Her daughter visits her on , she enjoys having the [facility] dentist/owner's new baby boy at the [employer]. Palliative care called daughter to update her, left a message inviting her to return the call. Impression and Recommendations - Palliative Care Impression: 67-year old woman who lives with residual effects from a 2008 CVA: L side hemiparesis and expressive aphasia. She is at her baseline, but has gained weight due to overeating and less exercise (the [facility]'s activity program is now less hours per week). She would benefit from maintaining a health diet, practicing portion control, decreasing consumption of sweets and soda pop. She considers her quality of life good. Palliative Care will continue to provide support and oversight. Recommendations/Counseling Done: Overweight: Patient has gained weight since the [employer] exercise program has reduced its hours. Weight 06/2918 was 238 lbs. Previously hre range was 220-225 lbs. Provided education on portion control, less sweets, increased activity. Incontinence of bladder: Palliative care provider signs for [employer]'s preauthorization forms for supplies of adult briefs, gloves, and protective pads, as required by the supplier. HTN: BP 120/81, continue carvedilol and lisinopril. GERD: Start tums 500 mg, 1-2 tabs PRN, max 10 tabs/24 hours Don't give within 2 hours of other meds. Continue ranitidine BID. Combination constipation and loose stools: [facility] doesn't use bowel softeners even with 1-3 days of constipation, due to the resulting loose stool/diarrhea. Will start chewable fiber tablets (eg, Benefiber, good fiber gummies) daily for the loose stools. [facility] dentist/owner to ask family to purchase. Advance care planning: Patient's goals remain consistent: Interventions for prolongation of life, and full code treatment. She expresses satisfaction with her quality of life at [facility]. Left message for daughter to update her and invite her to call back. Time Spent: 40 minutes were spent with more than 50% of the time spent on counseling, education, anticipatory guidance, and coordination of care.
== END 2018-07-20 13:21 | disposition home or self-care (01) ==
LOC: PC 13:20
PROVIDERS: ATTEND Nurse Practitioner
DX: Z51.5 Encounter for palliative care (principal); I69.954 Hemiplegia and hemiparesis following unspecified cerebrovascular disease affecting left non-dominant side; C54.1 Malignant neoplasm of endometrium; R32 Unspecified urinary incontinence; I12.9 Hypertensive chronic kidney disease with stage 1 through stage 4 chronic kidney disease, or unspecified chronic kidney disease; E11.22 Type 2 diabetes mellitus with diabetic chronic kidney disease; N18.3 Chronic kidney disease, stage 3 (moderate); I69.920 Aphasia following unspecified cerebrovascular disease; G40.909 Epilepsy, unspecified, not intractable, without status epilepticus; R15.9 Full incontinence of feces; K59.00 Constipation, unspecified; N39.3 Stress incontinence (female) (male); R41.3 Other amnesia; E66.3 Overweight; K21.9 Gastro-esophageal reflux disease without esophagitis; G47.30 Sleep apnea, unspecified; Z79.4 Long term (current) use of insulin; Z79.02 Long term (current) use of antithrombotics/antiplatelets

== ENCOUNTER 2018-12-14 13:00 | Outpatient (CLI) | payer MEDICARE, MEDICAID ==
--- NOTE | 2018-12-14 18:03 | CONSULTATION NOTE ---
Palliative Care Follow Up - Referral Referring Provider: Tamia Kenyon Time of Visit: [place] 12/14/2018. 13:00 - 13:45 Referral setting: Adult Family Home ([facility]) Referral Reason: Swollen L great toe - Information Sources Records reviewed: Previous records reviewed History/Review of Systems obtained from: Patient, Family, Caregiver Exam limitations: Clinical condition (expressive aphasia) - History of Present Illness Update Brief HPI Update: 66-year-old woman with a history of endometrial cancer from May 2016 and a 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 Medical history: h/o endometrial cancer (dx May 2016); DM II, h/o CVA/stroke (2008); CKD III; seizure disorder; HTN; HLD. She has pain, swelling, redness in joint of the L great toe, with redness and swelling at the metatarsal joint.. The pain has been on and off for 2-3 weeks. It improved with a "gout" diet (vegetables, low fat meat), but [facility] director of institutional giving says she can't force the patient to follow this diet. Patient reports it hurts with movement and keeps her awake at night. She is able to walk without a limp or favoring the L toe, and demonstrates her gait to me. The pain and redness flared up again yesterday. They had initially shown it to her PCP, it was a localized swelling, with the appearance of an insect bite. Since then it has come and gone. She had her lower front teeth pulled out in the last two weeks. They had been lose for quite a while. Since then, the patient reports she is feeling much better and less upset, depressed. She continues to be ambulatory with a cane. She is articulate despite the expressive aphasia. She follows directions and is cooperative. She is at her baseline cognition with short-term memory deficit. Family visits her regularly. Social History - Living Situation Living arrangement: Adult family home ([facility]) Living Situation: With caregiver(s) Support System: Is a long-time resident of [facility], she was there prior to the current director of institutional giving, so that's more than 7 years. Her daughter lives in [place] and visits regularly as possible. She uses public transportation. Medications/Allergies - Medications Home Medications: Ambulatory Orders Medication Instructions Recorded Confirmed Acetaminophen [Pain Relief] 500 mg PO Q4H PRN 05/19/16 12/14/18 Cholecalciferol (Vitamin D3) 800 units PO DAILY 05/19/16 12/14/18 [Vitamin D3] Citalopram [CeleXA] 40 mg PO DAILY 05/19/16 12/14/18 Fluticasone [Flonase] 1 spray INH DAILY PRN 05/19/16 12/14/18 Insulin Glargine [Lantus] 10 unit SUBQ QPM 05/19/16 12/14/18 Lisinopril [Zestril] 40 mg PO DAILY 05/19/16 12/14/18 Loratadine [Claritin] 10 mg PO DAILY 05/19/16 12/14/18 Polyethylene Glycol 3350 [Miralax] 17 gm PO DAILY PRN 05/19/16 12/14/18 Sennosides [Senna] 8.6 mg PO DAILY PRN 05/19/16 12/14/18 Simvastatin [Zocor] 40 mg PO QPM 05/19/16 12/14/18 buPROPion [Wellbutrin Sr] 100 mg PO BID 05/19/16 12/14/18 metFORMIN [Glucophage] 1,000 mg PO QPM 05/19/16 12/14/18 raNITIdine [Zantac] 150 mg PO BID 05/19/16 12/14/18 risperiDONE [Risperdal] 0.25 mg PO DAILY 05/19/16 12/14/18 Carvedilol [Coreg] 25 mg PO BID tablet 06/11/16 12/14/18 Clopidogrel [Plavix] 75 mg PO DAILY 06/23/16 12/14/18 Loperamide [Imodium] 2 mg PO QID PRN #10 capsule MDD 8 03/03/17 12/14/18 tabs Anusol/Hydrocortisone Rectal Cream 1 each TOP DAILY PRN 03/26/17 12/14/18 metFORMIN [Glucophage] 500 mg PO .QAM 07/20/18 12/14/18 Docusate Sodium 200 mg PO BID PRN 12/14/18 12/14/18 Nystatin 1 ea TOP BID PRN 12/14/18 12/14/18 - Allergies Allergies/Adverse Reactions: Allergies Allergy/AdvReac Type Severity Reaction Status Date / Time Penicillins Allergy Anaphylaxis Verified 03/03/17 11:35 Review of Systems - Constitutional Constitutional: reports: Weight gain (12/04/18 234 lbs, 38.9 BMI (ht 5'5"). 11/16/18 234 lbs. 10/10/18 234 lbs. 09/18/18 240 lbs. 08/21/18 240 lbs. 07/31/18. 234 lbs. Her previous range was 220-225 lbs.). denies: Fever, Weakness, Poor appetite - Ears, Nose & Throat Ears, Nose & Throat: reports: Postnasal drainage - Cardiovascular Cardiovascular: denies: Chest pain, Exertional dyspnea, Decr. exercise tolerance - Respiratory Respiratory: reports: SOB with exertion. denies: Cough, SOB at rest - Gastrointestinal Gastrointestinal: reports: Constipation (occasional), Good appetite - Genitourinary Genitourinary: reports: Incontinence. denies: Dysuria - Musculoskeletal Musculoskeletal: reports: Stiffness, Assistive devices (4-footed cane). denies: Transfer issues - Neurological Neurological: reports: Memory problems, Abnormal gait (stiff) - Psychiatric Psychiatric: reports: Anxiety (improved since getting loose teeth pullec) - Endocrine Endocrine: reports: Diabetes type 2 Physical Exam - Vital Signs Temperature: 97.1 F Pulse Rate: 65 Blood Pressure: 122/70 - Physical Exam General Appearance: positive: No acute distress, Alert Eyes Bilateral: positive: Normal inspection ENT: positive: No signs of dehydration Neck: positive: Trachea midline Cardiovascular: positive: Regular rate & rhythm, No murmur Respiratory: positive: No respiratory distress, Diminished in bases (LLL). negative: Wheezes, Rales, Rhonchi Skin: positive: Bruising (and pinkish discoloration on posterior lower extremity. No pain, no tenderness) Extremities: positive: Pedal edema (2+, no compression, no elevation) Neurologic/Psychiatric: positive: Oriented x3, Mood/affect nml, Disoriented to time, Slurred/abnml speech (slow speech secondary to expressive aphasia) Palliative Care - POLST Patient has POLST: Yes POLST Status: Full Code Pain: Location (L great toe joint and metatarsal joint) Tiredness/Fatigue: None Drowsiness/Sedation: None Nausea: None Depression: Mild (1-3) (improved since teeth were pulled) Dyspnea: Mild (1-3) (with exertion at times) Anorexia: None Sleep: Sleeps well Constipation: Managed, Intermittent constipation Performance Status: She is incontinent of bowel/bladder. Ambulatory with 4-footed cane. - Palliative Care Discussion: Spoke with daughter, confirmed that patient's wishes to be full code have not changed, daughter is in agreement with this if it is the wish of the patient. Daughter would not keep her on life support if there were no hope of going back to previous level of functioning. Daughter Janelle is the DPOA. Impression and Recommendations - Palliative Care Impression: 68-year old woman who lives with residual effects from a 2009 CVA: L side hemiparesis and expressive aphasia. She has on-and-off swollen painful L great toe, will start treatment. Palliative Care will continue to provide support and oversight. Recommendations/Counseling Done: Swollen L great toe, metatarsal joint: Acute, off and on for several weeks. Differential is gout, cellulitis. Start probenecid 500mg tab, give 1/2 tab (250mg) twice daily x 7 day. Monitor for effectiveness. HTN: BP stable, today 122/70, continue carvedilol and lisinopril. Advance care planning: Patient's goals remain consistent: Interventions for prolongation of life, and full code treatment. Discussed with daughter over the phone who supports patient's wishes and goals. Time Spent: 45 minutes were spent with more than 50% of the time spent on counseling, education, anticipatory guidance, and coordination of care.
== END 2018-12-14 13:01 | disposition home or self-care (01) ==
LOC: PC 13:00
PROVIDERS: ATTEND Nurse Practitioner
DX: Z51.5 Encounter for palliative care (principal); M25.475 Effusion, left foot; M25.572 Pain in left ankle and joints of left foot; I12.9 Hypertensive chronic kidney disease with stage 1 through stage 4 chronic kidney disease, or unspecified chronic kidney disease; E11.22 Type 2 diabetes mellitus with diabetic chronic kidney disease; I69.320 Aphasia following cerebral infarction; I69.354 Hemiplegia and hemiparesis following cerebral infarction affecting left non-dominant side; N18.3 Chronic kidney disease, stage 3 (moderate); F32.9 Major depressive disorder, single episode, unspecified; F41.9 Anxiety disorder, unspecified; R41.3 Other amnesia; Z79.4 Long term (current) use of insulin; Z79.899 Other long term (current) drug therapy; Z85.42 Personal history of malignant neoplasm of other parts of uterus

== ENCOUNTER 2019-01-28 08:00 | Outpatient (CLI) | payer MEDICARE, MEDICAID ==
[2019-01-28 13:03] LABS: BASOPHILS # (AUTO) 0.1 10^3/uL (0.0-0.1); BASOPHILS % (AUTO) 1.3 %; EOSINOPHILS # (AUTO) 0.3 10^3/uL (0.0-0.7); EOSINOPHILS % (AUTO) 3.6 %; HGB - HEMOGLOBIN 12.4 g/dL (12.0-16.0); LYMPHOCYTES # (AUTO) 1.8 10^3/uL (1.5-3.5); LYMPHOCYTES % (AUTO) 25.9 %; MEAN CORPUSCULAR HEMOGLOBIN 32.5 pg (27.0-31.0); MEAN CORPUSCULAR HGB CONC 31.4 g/dL (32.0-36.0); MEAN CORPUSCULAR VOLUME 103.4 fL (81.0-99.0); MEAN PLATELET VOLUME 10.2 fL (7.9-10.8); MONOCYTES # (AUTO) 0.6 10^3/uL (0.0-1.0); MONOCYTES % (AUTO) 8.6 %; NEUTROPHILS # (AUTO) 4.2 10^3/uL (1.5-6.6); NEUTROPHILS % (AUTO) 60.3 %; PLT - PLATELET COUNT 292 10^3/uL (130-450); RED BLOOD COUNT 3.82 10^6/uL (4.20-5.40); RED CELL DISTRIBUTION WIDTH 14.9 % (12.0-15.0); WHITE BLOOD COUNT 6.9 x10^3/uL (4.8-10.8)
[2019-01-28 13:56] LABS: PLATELET ESTIMATE, MANUAL NORMAL (130-450,000) (NORMAL); PLATELET MORPHOLOGY NORMAL APPEARANCE (NORMAL); RBC MORPHOLOGY (MULTIPLE) 1+ MACROCYTOSIS (NORMAL)
[2019-01-28 17:35] LABS: ALBUMIN 3.7 g/dL (3.2-5.5); ALKALINE PHOSPHATASE 62 IU/L (42-121); ALT ALANINE AMINOTRANSFERASE 11 IU/L (10-60); AST ASPARTATE AMINOTRANSFERASE 14 IU/L (10-42); BILIRUBIN,TOTAL 0.5 mg/dL (0.2-1.0); BUN - BLOOD UREA NITROGEN 21 mg/dL (6-20); CALCIUM 9.4 mg/dL (8.5-10.3); CARBON DIOXIDE - CO2 22 mmol/L (21-32); CHLORIDE 106 mmol/L (101-111); CHOL/HDL RATIO 3.5 (<4.4); CHOLESTEROL 180 mg/dL; CREATININE 1.2 mg/dL (0.4-1.0); GFR - MDRD 45 (>89); GLUCOSE 97 mg/dL (70-100); HDL CHOLESTEROL 51 mg/dL; LDL CHOLESTEROL,CALCULATED 101 mg/dL; SODIUM 139 mmol/L (135-145); TOTAL PROTEIN 7.3 g/dL (6.7-8.2); VLDL CHOLESTEROL 28 mg/dL
[2019-01-28 18:01] LABS: HB2 TOTAL 13.4 g/dL; HEMOGLOBIN A1C 0.56 g/dL
== END 2019-01-28 08:01 | disposition home or self-care (01) ==
LOC: LAB.N 08:00
PROVIDERS: ATTEND Nurse Practitioner Gerontology
DX: D53.9 Nutritional anemia, unspecified (principal); E78.5 Hyperlipidemia, unspecified; E11.9 Type 2 diabetes mellitus without complications; I10 Essential (primary) hypertension
CPT/HCPCS: 36415; 80053; 80061; 83036; 83721; 85025

== ENCOUNTER 2019-10-25 08:00 | Outpatient (CLI) | payer MEDICARE, MEDICAID | END 2019-10-25 23:59 | disposition home or self-care (01) | LOC: LAB.R 08:00 | PROVIDERS: ATTEND Family Medicine | DX: R50.9 Fever, unspecified (principal) | CPT/HCPCS: 81599 ==

== ENCOUNTER 2020-04-26 08:00 | Outpatient (CLI) | payer MEDICARE, MEDICAID ==
[2020-04-26 19:02] LABS: BASOPHILS # (AUTO) 0.1 10^3/uL (0.0-0.1); BASOPHILS % (AUTO) 1.2 %; EOSINOPHILS # (AUTO) 0.6 10^3/uL (0.0-0.7); EOSINOPHILS % (AUTO) 5.9 %; HGB - HEMOGLOBIN 13.9 g/dL (12.0-16.0); LYMPHOCYTES # (AUTO) 2.2 10^3/uL (1.5-3.5); LYMPHOCYTES % (AUTO) 22.8 %; MEAN CORPUSCULAR HEMOGLOBIN 33.6 pg (27.0-31.0); MEAN CORPUSCULAR HGB CONC 32.2 g/dL (32.0-36.0); MEAN CORPUSCULAR VOLUME 104.3 fL (81.0-99.0); MEAN PLATELET VOLUME 10.5 fL (7.9-10.8); MONOCYTES # (AUTO) 0.9 10^3/uL (0.0-1.0); MONOCYTES % (AUTO) 9.9 %; NEUTROPHILS # (AUTO) 5.7 10^3/uL (1.5-6.6); NEUTROPHILS % (AUTO) 59.8 %; PLT - PLATELET COUNT 325 10^3/uL (130-450); RED BLOOD COUNT 4.14 10^6/uL (4.20-5.40); RED CELL DISTRIBUTION WIDTH 14.4 % (12.0-15.0); WHITE BLOOD COUNT 9.5 x10^3/uL (4.8-10.8)
[2020-04-26 19:34] LABS: ALBUMIN 3.9 g/dL (3.2-5.5); ALBUMIN/GLOBULIN RATIO 1.1 (1.0-2.2); ALKALINE PHOSPHATASE 69 IU/L (42-121); ALT ALANINE AMINOTRANSFERASE < 10 IU/L (10-60); AST ASPARTATE AMINOTRANSFERASE 12 IU/L (10-42); BILIRUBIN,TOTAL 0.4 mg/dL (0.2-1.0); BUN - BLOOD UREA NITROGEN 28 mg/dL (6-20); CALCIUM 9.8 mg/dL (8.5-10.3); CARBON DIOXIDE - CO2 22 mmol/L (21-32); CHLORIDE 111 mmol/L (101-111); CREATININE 1.2 mg/dL (0.4-1.0); GLUCOSE 147 mg/dL (70-100); SODIUM 142 mmol/L (135-145); TOTAL PROTEIN 7.3 g/dL (6.7-8.2)
[2020-04-26 20:56] LABS: HEMOGLOBIN A1c% 5.7 % (4.27-6.07)
== END 2020-04-26 08:01 | disposition home or self-care (01) ==
LOC: LAB.WCP 08:00
PROVIDERS: ATTEND Family Medicine
DX: Z79.4 Long term (current) use of insulin (principal); M15.9 Polyosteoarthritis, unspecified; K21.9 Gastro-esophageal reflux disease without esophagitis; I67.89 Other cerebrovascular disease; G81.92 Hemiplegia, unspecified affecting left dominant side; E11.22 Type 2 diabetes mellitus with diabetic chronic kidney disease; N18.30 Chronic kidney disease, stage 3 unspecified; I67.9 Cerebrovascular disease, unspecified
CPT/HCPCS: 36415; 80053; 82043; 82570; 83036; 84443; 85025

== ENCOUNTER 2020-08-13 19:30 | Outpatient (CLI) | payer MEDICARE, MEDICAID | END 2020-08-13 19:31 | disposition critical access hospital (66) | LOC: EMS 19:30 | PROVIDERS: ATTEND Emergency Medicine | DX: R53.1 Weakness (principal) | CPT/HCPCS: A0425; A0429 ==

== ENCOUNTER 2020-08-13 19:44 | Observation (INO) | payer MEDICARE, MEDICAID ==
[2020-08-13 20:22] LABS: BASOPHILS # (AUTO) 0.1 10^3/uL (0.0-0.1); BASOPHILS % (AUTO) 1.2 %; EOSINOPHILS # (AUTO) 0.5 10^3/uL (0.0-0.7); EOSINOPHILS % (AUTO) 6.3 %; HGB - HEMOGLOBIN 13.7 g/dL (12.0-16.0); LYMPHOCYTES # (AUTO) 2.4 10^3/uL (1.5-3.5); LYMPHOCYTES % (AUTO) 28.4 %; MEAN CORPUSCULAR HEMOGLOBIN 33.7 pg (27.0-31.0); MEAN CORPUSCULAR HGB CONC 32.7 g/dL (32.0-36.0); MEAN CORPUSCULAR VOLUME 103.2 fL (81.0-99.0); MEAN PLATELET VOLUME 9.5 fL (7.9-10.8); MONOCYTES # (AUTO) 0.9 10^3/uL (0.0-1.0); MONOCYTES % (AUTO) 10.3 %; NEUTROPHILS # (AUTO) 4.5 10^3/uL (1.5-6.6); NEUTROPHILS % (AUTO) 53.6 %; PLT - PLATELET COUNT 296 10^3/uL (130-450); RED BLOOD COUNT 4.06 10^6/uL (4.20-5.40); WHITE BLOOD COUNT 8.4 x10^3/uL (4.8-10.8)
[2020-08-13 20:34] LABS: ALBUMIN 3.7 g/dL (3.2-5.5); ALBUMIN/GLOBULIN RATIO 1.2 (1.0-2.2); BILIRUBIN,TOTAL 0.6 mg/dL (0.2-1.0); CALCIUM 9.7 mg/dL (8.5-10.3); CREATININE 1.2 mg/dL (0.4-1.0); TOTAL PROTEIN 6.9 g/dL (6.7-8.2)
[2020-08-13 20:34] LABS: BILIRUBIN,URINE NEGATIVE (NEGATIVE); GLUCOSE, URINE (UA) NEGATIVE (NEGATIVE); KETONES,URINE (UA) NEGATIVE (NEGATIVE); LEUKOCYTE ESTERASE, URINE SMALL (NEGATIVE); NITRITE,URINE NEGATIVE (NEGATIVE); OCCULT BLOOD,URINE TRACE-INTA (NEGATIVE); PROTEIN,URINE NEGATIVE (NEGATIVE); UROBILINOGEN,URINE 1 (NORMAL) E.U./dL (NORMAL)
[2020-08-13 20:35] LABS: CLARITY,URINE CLEAR (CLEAR)
[2020-08-13 20:43] LABS: BACTERIA,URINE Few /HPF (None Seen); RBC,URINE 0-5 /HPF (0-5); SQUAMOUS EPITHELIAL CELL,UR RARE Squamous (<= Few)
--- NOTE | 2020-08-13 21:15 | ED Physician Documentation ---
PD HPI ALTERED MENTAL STATUS - Stated complaint Stated Complaint: WEAKNESS - Chief complaint Chief Complaint: General - History obtained from History obtained from: Patient - History of Present Illness Timing - onset: Today Timing - duration: Minutes (The patient states she had been having episodes of feeling general weakness with lightheadedness throughout the day. Would come and go. She thought she was under hydrated or dehydrated. She had been drinking less fluids. No fevers vomiting or diarrhea.) Timing - details: Intermittant Quality / character: Other (lightheaded episodes.) Associated symptoms: General weakness, Focal weakness (baseline left arm weakness from prior CVA, but states it feels a bit weaker as well.). No: Fever, Headache Contributing factors: Diabetic. No: Cancer, New medication, Recent med change, Recent illness Basline status: Alert and oriented X 3, Walker, [facility] facility Similar symptoms before: Has not had sx before Review of Systems Constitutional: denies: Fever Nose: denies: Rhinorrhea / runny nose, Congestion Throat: denies: Sore throat Cardiac: denies: Chest pain / pressure, Pedal edema Respiratory: denies: Cough GI: denies: Abdominal Pain, Nausea, Vomiting, Diarrhea Skin: denies: Rash Neurologic: reports: Generalized weakness (episodic through the day). 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: Hysterectomy, Oophrectomy HEENT: Tonsil/Adenoidectomy - Present Medications Home Medications: Ambulatory Orders Medication Instructions Recorded Confirmed Acetaminophen [Pain Relief] 500 mg PO Q4H PRN 05/19/16 12/14/18 Cholecalciferol (Vitamin D3) 800 units PO DAILY 05/19/16 12/14/18 [Vitamin D3] Citalopram [CeleXA] 40 mg PO DAILY 05/19/16 08/13/20 Fluticasone [Flonase] 1 spray INH DAILY PRN 05/19/16 08/13/20 Insulin Glargine [Lantus] 10 unit SUBQ QPM 05/19/16 12/14/18 Lisinopril [Zestril] 40 mg PO DAILY 05/19/16 08/13/20 Loratadine [Claritin] 10 mg PO DAILY 05/19/16 08/13/20 Sennosides [Senna] 8.6 mg PO DAILY PRN 05/19/16 08/13/20 Simvastatin [Zocor] 40 mg PO QPM 05/19/16 08/13/20 buPROPion [Wellbutrin Sr] 100 mg PO BID 05/19/16 08/13/20 metFORMIN [Glucophage] 1,000 mg PO QPM 05/19/16 12/14/18 polyethylene glycoL 3350 [Miralax] 17 gm PO DAILY PRN 05/19/16 08/13/20 raNITIdine [Zantac] 150 mg PO BID 05/19/16 12/14/18 risperiDONE [Risperdal] 0.25 mg PO DAILY 05/19/16 12/14/18 carvediloL [Coreg] 25 mg PO BID tablet 06/11/16 12/14/18 Clopidogrel [Plavix] 75 mg PO DAILY 06/23/16 08/13/20 Loperamide [Imodium] 2 mg PO QID PRN #10 capsule MDD 8 03/03/17 08/13/20 tabs Anusol/Hydrocortisone Rectal Cream 1 each TOP DAILY PRN 03/26/17 08/13/20 metFORMIN [Glucophage] 500 mg PO .QAM 07/20/18 08/13/20 Docusate Sodium 200 mg PO BID PRN 12/14/18 08/13/20 Nystatin 1 ea TOP BID PRN 12/14/18 12/14/18 Memantine HCl [Namenda Xr] 21 mg PO DAILY 08/13/20 08/13/20 Metoprolol Succinate [Toprol Xl] 100 mg PO DAILY 08/13/20 08/13/20 - Allergies Allergies/Adverse Reactions: Allergies Allergy/AdvReac Type Severity Reaction Status Date / Time Penicillins Allergy Anaphylaxis Verified 03/03/17 11:35 - Social History Does the pt smoke?: No Smoking Status: Never smoker Does the pt drink ETOH?: No Does the pt have substance abuse?: No - Immunizations Immunizations are current?: Yes - POLST Patient has POLST: Yes PD ED PE NORMAL - Vitals Vital signs reviewed: Yes - General General: Alert and oriented X 3, Well developed/nourished - Cardiac Cardiac: RRR, No murmur, Other (monitor showing NSR for initial ED period, then having episodes of apparent atrial fib/flutter for just 5-10 seconds or so. She denies feeling lightheaded with these. No Chest pain. ) - Respiratory Respiratory: Clear bilaterally - Abdomen Abdomen: Soft, Non tender - Derm Derm: Normal color, Warm and dry - Extremities Extremities: No tenderness to palpate, No edema, No calf tenderness / cord - Neuro Neuro: Alert and oriented X 3, Normal speech, Other (left arm weakness with flexion position and decreased sensation that she says is baseline s/p CVA. Some weakness of left leg. No facial asymmetry. ) Eye Opening: Spontaneous Motor: Obeys Commands Verbal: Oriented GCS Score: 15 - Psych Psych: Normal mood Results - Vitals Vitals: Vital Signs - 24 hr 08/13/20 08/13/20 08/13/20 19:53 20:02 22:15 Temperature 37 C 36.9 C Heart Rate 73 72 66 Respiratory 18 24 18 Rate Blood Pressure 159/109 H 160/100 H 151/80 H O2 Saturation 100 99 99 Oxygen O2 Source Room air - EKG (time done) 21:06 Rate: Rate (enter#) (64) Rhythm: NSR [place]: Normal Intervals: Normal VT QRS: Normal Ischemia: Normal ST segments. No: ST elevation c/w ischemia, ST depression - Labs Labs: Laboratory Tests 08/13/20 08/13/20 08/13/20 20:14 20:14 20:25 WBC 8.4 RBC 4.06 L Hgb 13.7 Hct 41.9 MCV 103.2 H MCH 33.7 H MCHC 32.7 RDW 14.0 Plt Count 296 MPV 9.5 Neut # (Auto) 4.5 Lymph # (Auto) 2.4 [place] # (Auto) 0.9 Eos # (Auto) 0.5 Baso # (Auto) 0.1 Absolute Nucleated RBC 0.00 Nucleated RBC % 0.0 Sodium 142 Potassium 4.3 Chloride 102 Carbon Dioxide 27 Anion Gap 13.0 BUN 19 Creatinine 1.2 H Estimated GFR (MDRD) 45 L Glucose 108 H Calcium 9.7 Total Bilirubin 0.6 AST 12 ALT 10 Alkaline Phosphatase 71 Troponin I High Sens Total Protein 6.9 Albumin 3.7 Globulin 3.2 Albumin/Globulin Ratio 1.2 Lipase 45 Urine Color YELLOW Urine Clarity CLEAR Urine pH 6.0 Ur Specific [place] 1.010 Urine Protein NEGATIVE Urine Glucose (UA) NEGATIVE Urine Ketones NEGATIVE Urine Occult Blood TRACE-INTA Urine Nitrite NEGATIVE Urine Bilirubin NEGATIVE Urine Urobilinogen 1 (NORMAL) Ur Leukocyte Esterase SMALL H Urine RBC 0-5 Urine WBC 6-10 H Ur Squamous Epith Cells RARE Squamous Urine Bacteria Few Ur Microscopic Review INDICATED Urine Culture Comments INDICATED Nasal Adenovirus (PCR) Nasal B. parapertussis DNA (PCR) Nasal Coronavir 229E PCR Nasal Coronavir HKU1 PCR Nasal Coronavir NL63 PCR Nasal Coronavir OC43 PCR Nasal Enterovir/Rhinovir PCR Nasal Influenza B PCR Nasal Influenza A PCR Nasal Parainfluen 1 PCR Nasal Parainfluen 2 PCR Nasal Parainfluen 3 PCR Nasal Parainfluen 4 PCR Nasal RSV (PCR) Nasal B.pertussis DNA PCR Nasal C.pneumoniae (PCR) Toni Human Metapneumo PCR Nasal M.pneumoniae (PCR) Nasal SARS-CoV-2 (PCR) 08/13/20 08/13/20 22:10 22:50 WBC RBC Hgb Hct MCV MCH MCHC RDW Plt Count MPV Neut # (Auto) Lymph # (Auto) [place] # (Auto) Eos # (Auto) Baso # (Auto) Absolute Nucleated RBC Nucleated RBC % Sodium Potassium Chloride Carbon Dioxide Anion Gap BUN Creatinine Estimated GFR (MDRD) Glucose Calcium Total Bilirubin AST ALT Alkaline Phosphatase Troponin I High Sens 3.8 Total Protein Albumin Globulin Albumin/Globulin Ratio Lipase Urine Color Urine Clarity Urine pH Ur Specific [place] Urine Protein Urine Glucose (UA) Urine Ketones Urine Occult Blood Urine Nitrite Urine Bilirubin Urine Urobilinogen Ur Leukocyte Esterase Urine RBC Urine WBC Ur Squamous Epith Cells Urine Bacteria Ur Microscopic Review Urine Culture Comments Nasal Adenovirus (PCR) NOT DETECTED Nasal B. parapertussis DNA (PCR) NOT DETECTED Nasal Coronavir 229E PCR NOT DETECTED Nasal Coronavir HKU1 PCR NOT DETECTED Nasal Coronavir NL63 PCR NOT DETECTED Nasal Coronavir OC43 PCR NOT DETECTED Nasal Enterovir/Rhinovir PCR NOT DETECTED Nasal Influenza B PCR NOT DETECTED Nasal Influenza A PCR NOT DETECTED Nasal Parainfluen 1 PCR NOT DETECTED Nasal Parainfluen 2 PCR NOT DETECTED Nasal Parainfluen 3 PCR NOT DETECTED Nasal Parainfluen 4 PCR NOT DETECTED Nasal RSV (PCR) NOT DETECTED Nasal B.pertussis DNA PCR NOT DETECTED Nasal C.pneumoniae (PCR) NOT DETECTED Toni Human Metapneumo PCR NOT DETECTED Nasal M.pneumoniae (PCR) NOT DETECTED Nasal SARS-CoV-2 (PCR) NOT DETECTED - Rads (name of study) head CT Radiology: Prelim report reviewed (prior infarcts. No acute process. ), See rad report chest xray Radiology: Prelim report reviewed (no acute process), See rad report PD MEDICAL DECISION MAKING - ED course Complexity details: reviewed results, re-evaluated patient, considered differential (Initially not really finding any acute abnormality. She did state she felt under hydrated and so her lightheadedness may have been from that. Given fluids. However she did subsequently have episodes of atrial fib flutter for just brief periods. ), d/w patient ED course: Having brief periods of atrial fib/flutter. Unclear whether this was the cause of her lightheadedness through the day, or if having more significant rhythm disturbance. I feel telemetry period would be prudent to determine if more significant rhythm diturbances. Departure - Departure Disposition: ED Place in Observation Clinical Impression: Paroxysmal atrial fibrillation, Episodic lightheadedness Condition: Stable Record reviewed to determine appropriate education?: Yes
[2020-08-13] MEDS ORDERED: SODIUM CHLORIDE 0.9% 1,000 ML IV STA (21:34)
[2020-08-13 23:30] LABS: C. PNEUMONIAE- RESP PCR PANEL NOT DETECTED
[2020-08-13] MEDS ORDERED: ACETAMINOPHEN 325 MG TABLET PO PRN (23:37)
[2020-08-13] MEDS ORDERED: ONDANSETRON ODT 4 MG TABLET TL PRN (23:37)
[2020-08-13] MEDS ORDERED: SODIUM CHLORIDE FLUSH 0.9% 10 ML SYRINGE IVP PRN (23:37)
--- NOTE | 2020-08-13 23:42 | HISTORY & PHYSICAL EXAMINATION ---
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 She was concerned that she may have been having a stroke as she felt weak. She does have baseline left upper extremity weakness although she states today that it feels a little weaker than usual. She has no other focal deficits. Denies headache, blurry vision. She does also feel lightheaded and dizzy at times. She states this happened twice today and she attributed to poor oral intake as she has not ate or drank very much for the past 3 days. She cannot tell me why as she denies any nausea, vomiting, abdominal pain, diarrhea. She also denies a poor appetite. She is a states that she has not been eating very much. She thought she was dehydrated. She denies any prior history of arrhythmia. Denies chest pain, palpitations, dyspnea. Reports no episodes of syncope but did feel like she was going to pass out twice today. She reports this happened to her before but it has been a very long time since she has had such symptoms. Denies any cardiac history. Denies any history of bleeding and reports no blood in her stool. In the emergency department, she was found to be afebrile and hemodynamically stable. Her labs were unremarkable. Her urinalysis did reveal pyuria, leukocyte Estrace, and few bacteria. Her troponin was normal. CT of the head revealed old infarcts but no acute intracranial abnormalities. Her chest x-ray was unremarkable. Her EKG revealed a sinus rhythm. While in the emergency department, she did have 2 brief episodes of atrial flutter and with 1 of these episodes, her heart rate was in the 170s. The patient denied any symptoms during this episode. Given this finding and her presentation with presyncope, medicine was consulted for admission. I did discuss goals of care with the patient and she would like to be a full code. 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 She denies any other history of heart disease, stroke. Living arrangement: senior care Social History Notes: She lives at [facility]. She is a non-smoker and has never smoked. She denies alcohol use. - POLST Patient has POLST: Yes <Filemon Rader - Last Filed: 08/14/20 00:12> Meds/Allgy <Filemon Rader - Last Filed: 08/14/20 00:12> <Shahzad Godoy - Last Filed: 08/14/20 00:47> - Home Medications Home Medications: Ambulatory Orders Medication Instructions Recorded Confirmed Acetaminophen [Pain Relief] 500 mg PO Q4H PRN 05/19/16 12/14/18 Cholecalciferol (Vitamin D3) 800 units PO DAILY 05/19/16 12/14/18 [Vitamin D3] Citalopram [CeleXA] 40 mg PO DAILY 05/19/16 08/13/20 Fluticasone [Flonase] 1 spray INH DAILY PRN 05/19/16 08/13/20 Insulin Glargine [Lantus] 10 unit SUBQ QPM 05/19/16 12/14/18 Lisinopril [Zestril] 40 mg PO DAILY 05/19/16 08/13/20 Loratadine [Claritin] 10 mg PO DAILY 05/19/16 08/13/20 Sennosides [Senna] 8.6 mg PO DAILY PRN 05/19/16 08/13/20 Simvastatin [Zocor] 40 mg PO QPM 05/19/16 08/13/20 buPROPion [Wellbutrin Sr] 100 mg PO BID 05/19/16 08/13/20 metFORMIN [Glucophage] 1,000 mg PO QPM 05/19/16 12/14/18 polyethylene glycoL 3350 [Miralax] 17 gm PO DAILY PRN 05/19/16 08/13/20 raNITIdine [Zantac] 150 mg PO BID 05/19/16 12/14/18 risperiDONE [Risperdal] 0.25 mg PO DAILY 05/19/16 12/14/18 carvediloL [Coreg] 25 mg PO BID tablet 06/11/16 12/14/18 Clopidogrel [Plavix] 75 mg PO DAILY 06/23/16 08/13/20 Loperamide [Imodium] 2 mg PO QID PRN #10 capsule MDD 8 03/03/17 08/13/20 tabs Anusol/Hydrocortisone Rectal Cream 1 each TOP DAILY PRN 03/26/17 08/13/20 metFORMIN [Glucophage] 500 mg PO .QAM 07/20/18 08/13/20 Docusate Sodium 200 mg PO BID PRN 12/14/18 08/13/20 Nystatin 1 ea TOP BID PRN 12/14/18 12/14/18 Memantine HCl [Namenda Xr] 21 mg PO DAILY 08/13/20 08/13/20 Metoprolol Succinate [Toprol Xl] 100 mg PO DAILY 08/13/20 08/13/20 - Allergies Allergies/Adverse Reactions: Allergies Allergy/AdvReac Type Severity Reaction Status Date / Time Penicillins Allergy Anaphylaxis Verified 03/03/17 11:35 Review of Systems - Constitutional Constitutional: reports: Weakness. denies: Fever, Chills, Poor appetite - Eyes Eyes: denies: Blurred vision - Ears, Nose & Throat Ears, Nose & Throat: denies: Nasal discharge, Sore throat - Cardiovascular Cariovascular: reports: Lightheadedness. denies: Irregular heart rate, Palpitations, Chest pain, Edema, Syncope, Exertional dyspnea, Decr. exercise tolerance - Respiratory Respiratory: denies: Cough, SOB at rest, SOB with exertion - Gastrointestinal Gastrointestinal: denies: Abdominal pain, Diarrhea, Nausea, Vomiting, Poor appetite - Genitourinary Genitourinary: denies: Dysuria, Frequency, Hematuria - Musculoskeletal Musculoskeletal: reports: Limited range of motion - Neurological Neurological: reports: General weakness, Focal weakness, Dizziness, Pre-existing deficit. denies: Headache, Numbness - Hematologic/Lymphatic Hematologic/Lymphatic: denies: Anemia, Bleeding tendencies - All Other Systems All Other Systems: reports: Reviewed and negative <Filemon Rader - Last Filed: 08/14/20 00:12> <Filemon Rader - Last Filed: 08/14/20 00:12> Prior Level of Functionality: She resides at [facility] on [facility]. She has residual left upper extremity weakness and expressive aphasia due to prior stroke. (Filemon Rader) Exam - Vital Signs Reviewed Vital Signs: Yes - Physical Exam General Appearance: positive: No acute distress, Alert Eyes Bilateral: positive: Normal inspection, Conjunctivae nml ENT: positive: Other (Poor dentition.) Neck: positive: Nml inspection Respiratory: positive: No respiratory distress. negative: Wheezes, Rales Cardiovascular: positive: Regular rate & rhythm, No murmur. negative: Tachycardia Abdomen: positive: Non-tender, No distention. 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 She is able to move all 4 extremities. No other gross deficits. Speech is slurred which is at baseline.). negative: Disoriented to person, Disoriented to place <CarlosmariluzFilemon - Last Filed: 08/14/20 00:12> - Vital Signs Vital Signs: Vital Signs x48h Temp Pulse Resp BP Pulse Ox 08/14/20 00:06 67 14 134/78 H 95 08/13/20 22:15 36.9 C 66 18 151/80 H 99 08/13/20 20:02 72 24 160/100 H 99 08/13/20 19:53 37 C 73 18 159/109 H 100 Conclusion/Plan - Problem List (1) Paroxysmal atrial flutter Conclusion/Plan: Although she is predominantly in a sinus rhythm, she did have an episode of paroxysmal atrial flutter while in the emergency department and at 1 point she had a narrow complex tachycardia which also appeared to be atrial flutter. She is not symptomatic during this episode. She is already on metoprolol which we will resume tomorrow. If she has further episodes of tachycardia the new will likely increase this dose of metoprolol. If she is overall stable then we will likely continue her current dose and recommend an outpatient Zio patch. Given her history of stroke, we discussed the importance of anticoagulation and she is agreeable to this. We will start her on Eliquis. Obtain echocardiogram and monitor on telemetry. Trend troponin. (2) Pre-syncope Conclusion/Plan: It is unclear if this is related to her atrial flutter although she was not symptomatic when she was tachycardic in the emergency department. She may also potentially have episodic bradycardia which has not been detected. We will place in observation overnight and obtain echocardiogram in the morning. Check orthostatics. (3) History of stroke Conclusion/Plan: She has a history of stroke with residual left sided deficit. Although she complains of weakness, she does not appear to have any new deficits at this time. CT of the head revealed the old infarcts. Low suspicion for stroke at this time. She was previously on Plavix and statin. Given the new atrial flutter, we will switch her to Eliquis and continue statin. (4) Type 2 diabetes mellitus Conclusion/Plan: We will place her on a carb controlled diet and sliding scale. (5) Depression Conclusion/Plan: Stable. Continue home medications. (6) Hypertension Conclusion/Plan: She is currently hypertensive with systolic in the 150s. We will resume her lisinopril and will adjust her metoprolol dose if necessary as mentioned above. If she remains hypertensive then we can add a third antihypertensive like amlodipine. - Lab Results Lab results reviewed: Yes Fish Bones: 08/13/20 20:14 08/13/20 20:14 - Diagnostic Imaging Results Diagnostic Imaging Results: positive: Final report reviewed - EKG Results EKG Interpreted Independently: Yes EKG Comparison: Changed from prior EKG <Filemon Rader - Last Filed: 08/14/20 00:12> - Lab Results Fish Bones: 08/13/20 20:14 08/13/20 20:14 <Shahzad Godoy Last Filed: 08/14/20 00:47> - EKG Results EKG Findings: EKG reveals a sinus rhythm without any ST segment change. (Filemon Rader) Core Measures - Anticipated LOS I expect patient to be DC'd or transferred within 96 hours.: Yes - DVT/VTE - Prophylaxis VTE/DVT Device ordered at admit?: Yes VTE/DVT Prophylaxis med ordered at admit?: Yes <Filemon Rader - Last Filed: 08/14/20 00:12> - Issues Hospital Issues and Management Plan: 69-year-old female with history of stroke presents complaining of lightheadedness. Found to be in a sinus rhythm but did have a brief episode of paroxysmal atrial flutter and her heart rates were elevated in the 170s although she was not symptomatic. Given her presentation of lightheadedness and this arrhythmia, we will place her in observation for telemetry and obtaining an echocardiogram. We will adjust her rate control medications as necessary. (Filemon Rader)
[2020-08-14] MEDS: SODIUM CHLORIDE FLUSH 0.9% 10 ML SYRINGE IVP SCH ×2 (01:17→08:34)
[2020-08-14 05:39] LABS: BASOPHILS # (AUTO) 0.1 10^3/uL (0.0-0.1); EOSINOPHILS # (AUTO) 0.5 10^3/uL (0.0-0.7); EOSINOPHILS % (AUTO) 5.7 %; HGB - HEMOGLOBIN 12.4 g/dL (12.0-16.0); LYMPHOCYTES # (AUTO) 2.7 10^3/uL (1.5-3.5); LYMPHOCYTES % (AUTO) 32.3 %; MEAN CORPUSCULAR HEMOGLOBIN 33.4 pg (27.0-31.0); MEAN CORPUSCULAR VOLUME 104.6 fL (81.0-99.0); MEAN PLATELET VOLUME 9.9 fL (7.9-10.8); MONOCYTES # (AUTO) 0.8 10^3/uL (0.0-1.0); MONOCYTES % (AUTO) 9.8 %; NEUTROPHILS # (AUTO) 4.2 10^3/uL (1.5-6.6); NEUTROPHILS % (AUTO) 50.6 %; PLT - PLATELET COUNT 271 10^3/uL (130-450); RED BLOOD COUNT 3.71 10^6/uL (4.20-5.40); WHITE BLOOD COUNT 8.3 x10^3/uL (4.8-10.8)
[2020-08-14 05:51] LABS: CALCIUM 9.3 mg/dL (8.5-10.3); CREATININE 1.1 mg/dL (0.4-1.0); MAGNESIUM 1.9 mg/dL (1.7-2.8)
--- NOTE | 2020-08-14 07:22 | CT Report ---
PROCEDURE: HEAD WO INDICATIONS: increased left arm weakness today; prior CVA TECHNIQUE: Noncontrast 4.5 mm thick angled axial sections acquired from the foramen magnum to the vertex. For r adiation dose reduction, the following was used: automated exposure control, adjustment of mA and/or kV according to patient size. COMPARISON: 06/14/2012 and 2009 FINDINGS: Image quality: Excellent. CSF spaces: Basal cisterns are patent. No extra-axial fluid collections. The ventricles are symmet geovani in size and shape. Brain: No intracranial bleeds or masses. There is cerebral volume loss for age, with resultant vent ricular and sulcal prominence. There are periventricular and deep white matter chronic small vessel ischemic changes. Large chronic infarct involving the right frontal, temporal and parietal lobes. Mo derate-sized chronic infarct involving the left frontal and parietal lobes. Small chronic infarct inv olving the right occipital lobe. Small chronic infarct involving the right cerebellar hemisphere. The re is intracranial internal carotid artery atherosclerosis. Skull and face: Calvarium and visualized facial bones appear intact, without suspicious lesions. Sinuses: Mild mucosal thickening in the visualized right maxillary sinus. Mastoids are clear. IMPRESSION: No acute intracranial disease process. Reviewed by: Mami Velez MD, PhD on 08/14/2020 7:21 AM PST Approved by: Mami Velez MD, PhD on 08/14/2020 7:21 AM [facility] Station ID: [id number]
--- NOTE | 2020-08-14 07:47 | XRAY Report ---
PROCEDURE: Chest 1 View X-Ray INDICATIONS: chest pain TECHNIQUE: One view of the chest was acquired. COMPARISON: 06/11/2016 FINDINGS: Surgical changes and devices: None. Lungs and pleura: No pleural effusions or pneumothorax. Lungs are clear. Mediastinum: Mediastinal contours appear normal. Heart size is normal. Bones and chest wall: No suspicious bony lesions. Overlying soft tissues appear unremarkable. IMPRESSION: 1. No acute cardiopulmonary disease. Reviewed by: Franco Bella MD on 08/14/2020 7:46 AM [facility] Approved by: Franco Bella MD on 08/14/2020 7:46 AM [facility] Station ID: [id number]
[2020-08-14] MEDS: INSULIN ASPART 300 UNIT/3 ML PEN SUBQ SCH ×2 (08:32→12:15)
[2020-08-14] MEDS ORDERED: buPROPion SR 100 MG TABLET PO SCH (09:00)
[2020-08-14] MEDS ORDERED: CITALOPRAM 10 MG TABLET PO SCH (09:00)
[2020-08-14] MEDS ORDERED: APIXABAN 5 MG TABLET PO SCH (09:00)
[2020-08-14] MEDS ORDERED: lisinopriL 20 MG TABLET PO SCH (09:00)
[2020-08-14] MEDS ORDERED: MEMANTINE HCL 21 MG PO SCH (09:00)
--- NOTE | 2020-08-14 11:18 | Discharge Plan ---
"Discharge Plan for SNF / [facility] - Discharge Plan And Transition Orders Problem Reviewed?: Yes Disposition: 01 Home, Self Care Condition: Stable Allergies and Adverse Reactions: Allergies Allergy/AdvReac Type Severity Reaction Status Date / Time Penicillins Allergy Anaphylaxis Verified 03/03/17 11:35 Health Concerns: 1 ) Paroxysmal atrial flutter; new diagnosis [id number] (age 65-74, female, +HTN, + Stroke Hx + DM) -Plavix changed to Eliquis -Consider outpatient referral to cardiology for Holter/Blayne patch to determine frequency of aflutter -continue statin -as below, unremarkable echo (final report pending) New anticoagulation: Eliquis 5 mg PO bid started, Rx on discharge sent electronically to [facility] Previously on Plavix, plavix discontinued (2) Pre-syncope Unclear if related to the atrial flutter noted in ED (self limited) as she was not symptomatic when she was tachycardic in the emergency department. She may also potentially have episodic bradycardia which has not been detected. As above , no recurrent tachycardia overnight Orthostatics negative Did receive 1L NSin ED few WBC, few bacteria in urine, but NO symptoms, not c/w Uti, no ABX started, feeling at baseline following day Echo 08/14/20; FINAL REPORT PENING preliminary report; sinus rhtyhm during sudy, LV size normal Normal LV size and fxn withEF 70-75%. No WMA, indeterminate diastolic function, normal LA voliume index, No , No AR, No MS, No MR RVSP 34 mmHg (3) History of stroke No new deficits, CT head, notable only for old infarcts, no focal findings suggestive of new stroke. As above, changing from Plavix to eliquis given the new atrial flutter. Stop Plavix Start Eliquis 5 mg bid continue statin (4) Type 2 diabetes mellitus continues home metformin, (held in hospital), Glucoses were 115 premeal Well controlled A1C 5.7 10/20 Per d/w Michael at [place], ok to continue home pm insulin (balsaglar) regimen as has had no hypoglycemia (glucoses ~ 95-100 per Michael). Given A1C 5.7, this is relatively tight control given her comorbidities. Have low threshold to reduce dose (5) Depression Stable. Continues home citalopram 40 dailyand bupropion 100 bid (6) Hypertension systolic in 150's on presentation, mostly 130's on repeat checks after admit. 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 She was concerned that she may have been having a stroke as she felt weak. She does have baseline left upper extremity weakness although she states today that it feels a little weaker than usual. She has no other focal deficits. Denies headache, blurry vision. She does also feel lightheaded and dizzy at times. She states this happened twice today and she attributed to poor oral intake as she has not ate or drank very much for the past 3 days. She cannot tell me why as she denies any nausea, vomiting, abdominal pain, diarrhea. She also denies a poor appetite. She is a states that she has not been eating very much. She thought she was dehydrated. She denies any prior history of arrhythmia. Denies chest pain, palpitations, dyspnea. Reports no episodes of syncope but did feel like she was going to pass out twice today. She reports this happened to her before but it has been a very long time since she has had such symptoms. Denies any cardiac history. Denies any history of bleeding and reports no blood in her stool. In the ED she was hemodynamically stable, afebrile, normal oxygenation on RA to be afebrile and hemodynamically stable. CBC and chemistry , troponins were unremarkable other than macrocytosis w/ MCV 103.2. not changd, UA had small leuk esterase, 6-10 WB per HF and few bacteria. She denied urinary symptoms as above. urine cx, still Pending, + GNR, antibiotics not started at this time given no urinary symptoms per patient. CT brain; old infarcts but no acute intracranial abnormalities. CXR unremarkable. EKG NSR , but while in the emergency department, she did have 2 brief episodes of atrial flutter and with 1 of these episodes, her heart rate was in the 170s. The patient denied any symptoms during this episode. (admtted for eval of the new aflutter, ) Plan as above - SNF / [facility] Transition Orders Admit to (Facility): [facility] Under the care of (Name): PCP Korey Jeff Discharge Diagnosis: Paroxysmal atrial flutter; no prior history. Incidentally notd in ED at 22:45 p and 22:20 p, self limited 2:1 and 3:1 aflutter. No associated SOB, chest pain, diaphoresis, and no reporduction of the generalized weakness feeling she described as presenting symptom No recurrent aflutter overnight on tele or on further monitoring (remained sinus leola thereafter Anticoagulation/ stroke risk d/w patient who agreed to anticoagulation (she does have history of stroke with residual L sided deficit) Eliquis 5 mg bid presribed on discharge PCP consider referral to cardiology Medicare Certification Statement: I certify that [facility] care is medically necessary on a continuing basis for any of the conditions for which she/he is receiving care during hospitalization. Notify PCP of admission and forward orders to primary provider for signature. Weight on admission and: Weekly Other Notification Orders: Call PCP immediately if patient develops dyspnea, chest pain/tightness or edema. House Bowel Program: Yes Additional Bowel Program Orders: If no BM after 2 days, nurse may give M.O.M. 30ml PO PRN and/or ducolax Supp 1 AK and/or FAUSTO 250mg P.O., and/or senna 1-2 tabs PO. On day 3 nurse may give repeat above order until residents constipation is resolved. Oxygen Orders: none Medication Orders: PLEASE REFER TO THE DISCHARGE MEDICATION LIST. - Medications New Prescriptions: Apixaban [Eliquis] 5 mg PO BID #60 tab - Diet Type: No added sugar Texture: Regular Liquids: Thin - Therapies | Activity Activity: Activity as Tolerated (Walker for ambulation) Weight Bearing: Full Weight Assistance Devices: Walker Additional Instructions: - Consider outpatient cardiology consult for holter/Blayne patch to evaluate frequency of aflutter as above -Bleeding precautions on eliquis -stop plavix as above"
[2020-08-14] MEDS ORDERED: METOPROLOL SUCCINATE 50 MG TABLET PO SCH (12:00)
[2020-08-14 13:26] VITALS: BP 135/69
--- NOTE | 2020-08-14 15:28 | DISCHARGE SUMMARY ---
"Discharge Summary Admit Date: 08/13/20 Discharge Date: 08/14/20 Discharging Provider: CHRISTIAN West Primary Care Provider: Dr Korey Jeff Code Status: Attempt Resuscitation Condition at Discharge: Stable Discharge Disposition: 01 Home, Self Care Discharge [facility]: [facility] - DIAGNOSES Admission Diagnoses: Paroxysmal atrial flutter Pre-syncope History of stroke Type 2 DM Depression Hypertension Discharge Diagnoses with Status of Each Condition: Paroxysmal atrial flutter; x 2 self limited in ED, no recurrence overnight on tele [id number] started Eliquis 5 mg bid stopped Plavix Echo no significant finding, consider Zio patch/ holter as outpatient Pre-syncope; no recurrence, not orthostatic, no infection, may have been slightly intravascularly depleted History of stroke stable, no new stroke continues statin on Eliquis w/ new diagnosis of PAF stopped Plavix Type 2 DM; controlled Depression; controlled Hypertension; elevated on admission, controlled at d/c on home regimen - HPI History of Present Illness: This is a 69-year-old female with a prior medical history significant for 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 She was concerned that she may have been having a stroke as she felt weak. She does have baseline left upper extremity weakness although she states today that it feels a little weaker than usual. She has no other focal deficits. Denies headache, blurry vision. She does also feel lightheaded and dizzy at times. She states this happened twice today and she attributed to poor oral intake as she has not ate or drank very much for the past 3 days. She cannot tell me why as she denies any nausea, vomiting, abdominal pain, diarrhea. She also denies a poor appetite. She is a states that she has not been eating very much. She thought she was dehydrated. She denies any prior history of arrhythmia. Denies chest pain, palpitations, dyspnea. Reports no episodes of syncope but did feel like she was going to pass out twice today. She reports this happened to her before but it has been a very long time since she has had such symptoms. Denies any cardiac history. Denies any history of bleeding and reports no blood in her stool. In the emergency department, she was found to be afebrile and hemodynamically stable. Her labs were unremarkable. Her urinalysis did reveal pyuria, leukocyte Estrace, and few bacteria. Her troponin was normal. CT of the head revealed old infarcts but no acute intracranial abnormalities. Her chest x-ray was unremarkable. Her EKG revealed a sinus rhythm. While in the emergency de partment, she did have 2 brief episodes of atrial flutter and with 1 of these episodes, her heart rate was in the 170s. The patient denied any symptoms during this episode. Given this finding and her presentation with presyncope, medicine was consulted for admission. I did discuss goals of care with the patient and she would like to be a full code. - CONSULTS | PROCEDURES Consultations: none Procedures: NO invasive procedures Bedside 2 D echocardiogram ; Final read pending/ intial read as below - HOSPITAL COURSE Hospital Course: 1 ) Paroxysmal atrial flutter; new diagnosis [id number] (age 65-74, female, +HTN, + Stroke Hx + DM) -Plavix changed to Eliquis -Consider outpatient referral to cardiology for Holter/Blayne patch to determine frequency of aflutter Given extensive prior stroke, suggestive of cardio embolic in past, unclear what prior work up entailed w/ prior stroke -continue statin -as below, unremarkable echo (final report pending) New anticoagulation: Eliquis 5 mg PO bid started, Rx on discharge sent electronically to [facility] Previously on Plavix, plavix discontinued (2) Pre-syncope Unclear if related to the atrial flutter noted in ED (self limited) as she was not symptomatic when she was tachycardic in the emergency department. She may also potentially have episodic bradycardia which has not been detected. As above , no recurrent tachycardia overnight Orthostatics negative Did receive 1L NSin ED and felt considerably improved w/ no further symptoms few WBC, few bacteria in urine, but NO symptoms, not c/w Uti, no ABX started, feeling at baseline following day Echo 08/14/20; FINAL REPORT PENING preliminary report; sinus rhtyhm during sudy, LV size normal Normal LV size and fxn withEF 70-75%. No WMA, indeterminate diastolic function, normal LA voliume index, No , No AR, No MS, No MR RVSP 34 mmHg (3) History of stroke No new deficits, CT head, notable only for old infarcts, no focal findings suggestive of new stroke. As above, changing from Plavix to eliquis given the new atrial flutter. Stop Plavix Start Eliquis 5 mg bid continue statin (4) Type 2 diabetes mellitus continues home metformin, (held in hospital), Glucoses were 115 premeal Well controlled A1C 5.7 04/24 Per d/w Michael at [place], ok to continue home pm insulin (balsaglar) regimen as has had no hypoglycemia (glucoses ~ 95-100 per Michael). HOWEVER, given A1C 5.7, this is relatively tight control given her comorbidities. Have low threshold to reduce dose (5) Depression Stable. Continues home citalopram 40 dailyand bupropion 100 bid (6) Hypertension systolic in 150's on presentation, mostly 130's on repeat checks after admit. Continues home her lisinopril and metoprolol with no dose changes (Per care staff at home, HR consistently 60's on her home dose metoprolol 100 XL daily, no bradycardia) - ALLERGIES Allergies/Adverse Reactions: Allergies Allergy/AdvReac Type Severity Reaction Status Date / Time Penicillins Allergy Anaphylaxis Verified 03/03/17 11:35 - MEDICATIONS Home Medications: Ambulatory Orders Medication Instructions Recorded Confirmed Acetaminophen [Pain Relief] 500 mg PO Q4H PRN 05/19/16 12/14/18 Cholecalciferol (Vitamin D3) 800 units PO DAILY 05/19/16 12/14/18 [Vitamin D3] Citalopram [CeleXA] 40 mg PO DAILY 05/19/16 08/13/20 Fluticasone [Flonase] 1 spray INH DAILY PRN 05/19/16 08/13/20 Insulin Glargine [Lantus] 10 unit SUBQ QPM 05/19/16 12/14/18 Lisinopril [Zestril] 40 mg PO DAILY 05/19/16 08/13/20 Loratadine [Claritin] 10 mg PO DAILY 05/19/16 08/13/20 Sennosides [Senna] 8.6 mg PO DAILY PRN 05/19/16 08/13/20 Simvastatin [Zocor] 40 mg PO QPM 05/19/16 08/13/20 buPROPion [Wellbutrin Sr] 100 mg PO BID 05/19/16 08/13/20 polyethylene glycoL 3350 [Miralax] 17 gm PO DAILY PRN 05/19/16 08/13/20 Loperamide [Imodium] 2 mg PO QID PRN #10 capsule MDD 8 03/03/17 08/13/20 tabs Anusol/Hydrocortisone Rectal Cream 1 each TOP DAILY PRN 03/26/17 08/13/20 metFORMIN [Glucophage] 500 mg PO .QAM 07/20/18 08/13/20 Docusate Sodium 200 mg PO BID PRN 12/14/18 08/13/20 Memantine HCl [Namenda Xr] 21 mg PO DAILY 08/13/20 08/13/20 Metoprolol Succinate [Toprol Xl] 100 mg PO DAILY 08/13/20 08/13/20 Acetaminophen [Tylenol] 650 mg PO Q4HR PRN 08/14/20 Apixaban [Eliquis] 5 mg PO BID #60 tab 08/14/20 - PHYSICAL EXAM AT DISCHARGE General Appearance: positive: No acute distress, Alert, Other (baseline dysarthria but can make self understood, heavy set woman, appears older than actual age, seen in bed and up in chair, sl left hemiparesis w/ hand contracture) Eyes Bilateral: positive: Normal inspection, PERRL, Other (wearing glasses) ENT: negative: ENT inspection nml (sl right deviation of tongue on protrusion, chews , swallows w/o difficulty) Neck: positive: Nml inspection Respiratory: positive: Chest non-tender, No respiratory distress, Breath sounds nml Cardiovascular: positive: Regular rate & rhythm, No murmur Peripheral Pulses: positive: 2+ Abdomen: positive: Non-tender, No organomegaly, Nml bowel sounds, Other (obese) Skin: positive: Warm, Dry Extremities: positive: Non-tender, Other (left hand everted contracture, can splay fingers). negative: Pedal edema Neurologic/Psychiatric: positive: Oriented x3, Mood/affect nml, Other (able to stand up with assist and walker, and move to chair w/ light assist) - LABS Result Diagrams: 08/14/20 05:30 08/14/20 05:30 - DIAGNOSTIC IMAGING Diagnostic Imaging Results: Final report reviewed Diagnostic Imaging Results Comments: Head CT; no acute intracranial disease process Cerebral volume loss for age w/ ventricular / sulcal prominene. Periventriular and deep white matter choronic small vessel ischemic changes, Large chronic infart involving R frontal, temporal and pareital lobes and moderate sized chronic infarct involving L frontal and parietal. Small chronic infarct involving the R occipital lobe. Small chronic infarct involving R cerebellar hemisphere. intracranial ICA atherosclerosis. Echocardiogram; preliminary report sinus rhtyhm during study, LV size normal Normal LV size and fxn withEF 70- 75%. No WMA, indeterminate diastolic function, normal LA voliume index, No , No AR, No MS, No MR RVSP 34 mmHg - FOLLOW UP Follow Up: follow up PCP next week Recommend outpatient cardiology consult for holter/ZIO patch holter or similar to evaluate frequency of PAF - TIME SPENT Time Spent in Discharge (Minutes): 40 (over 40 minutes spent evaluating patient, results of echo, discussing care w/ provider at [facility])"
[2020-08-14] MEDS ORDERED: ATORVASTATIN 10 MG TABLET PO SCH (21:00)
== END 2020-08-14 15:11 | disposition home or self-care (01) ==
LOC: EDUNIT# → ED 19:44 → MS2 23:37
PROVIDERS: ADMIT Internal Medicine; ATTEND Nurse Practitioner
DX: I48.92 Unspecified atrial flutter (principal); R55 Syncope and collapse; E11.9 Type 2 diabetes mellitus without complications; F32.9 Major depressive disorder, single episode, unspecified; I10 Essential (primary) hypertension; I69.334 Monoplegia of upper limb following cerebral infarction affecting left non-dominant side; I69.320 Aphasia following cerebral infarction; E78.00 Pure hypercholesterolemia, unspecified; G47.30 Sleep apnea, unspecified; Z79.4 Long term (current) use of insulin; R32 Unspecified urinary incontinence; H54.7 Unspecified visual loss; Z79.899 Other long term (current) drug therapy; Z20.822 Contact with and (suspected) exposure to COVID-19
CPT/HCPCS: 36415; 70450; 71045; 80048; 80053; 81001; 83690; 83735; 84484; 85025; 87086; 87181; 87631; 93005; 93306; 99284; 99285; A9270; G0378; 0202U; 81003

== ENCOUNTER 2021-06-12 10:27 | Outpatient (CLI) | payer MEDICARE, MEDICAID ==
[2021-06-12 11:03] LABS: CALCIUM 9.3 mg/dL (8.5-10.3); CREATININE 1.2 mg/dL (0.4-1.0); POTASSIUM 4.1 mmol/L (3.5-5.0)
[2021-06-12 11:09] LABS: BASOPHILS # (AUTO) 0.1 10^3/uL (0.0-0.1); BASOPHILS % (AUTO) 1.4 %; EOSINOPHILS # (AUTO) 0.2 10^3/uL (0.0-0.7); HCT - HEMATOCRIT 42.4 % (37.0-47.0); HGB - HEMOGLOBIN 13.9 g/dL (12.0-16.0); LYMPHOCYTES # (AUTO) 1.8 10^3/uL (1.5-3.5); LYMPHOCYTES % (AUTO) 24.9 %; MEAN CORPUSCULAR HEMOGLOBIN 33.4 pg (27.0-31.0); MEAN CORPUSCULAR HGB CONC 32.8 g/dL (32.0-36.0); MEAN CORPUSCULAR VOLUME 101.9 fL (81.0-99.0); MEAN PLATELET VOLUME 10.1 fL (7.9-10.8); MONOCYTES # (AUTO) 0.6 10^3/uL (0.0-1.0); MONOCYTES % (AUTO) 8.8 %; NEUTROPHILS # (AUTO) 4.5 10^3/uL (1.5-6.6); NEUTROPHILS % (AUTO) 61.6 %; PLT - PLATELET COUNT 297 10^3/uL (130-450); RED BLOOD COUNT 4.16 10^6/uL (4.20-5.40); RED CELL DISTRIBUTION WIDTH 14.5 % (12.0-15.0); WHITE BLOOD COUNT 7.3 x10^3/uL (4.8-10.8)
[2021-06-12 12:43] LABS: ESTIMATED AVERAGE GLUCOSE 123 mg/dL (70-100); HEMOGLOBIN A1c% 5.9 % (4.27-6.07)
== END 2021-06-12 10:28 | disposition home or self-care (01) ==
LOC: LAB 10:27
PROVIDERS: ATTEND Registered Nurse
DX: E11.9 Type 2 diabetes mellitus without complications (principal); I10 Essential (primary) hypertension
CPT/HCPCS: 36415; 80048; 83036; 85025

== ENCOUNTER 2022-04-14 07:35 | Emergency (ER) | payer MEDICARE, MEDICAID ==
[2022-04-14 07:41] VITALS: BP 151/70
--- NOTE | 2022-04-14 08:10 | ED Physician Documentation ---
History of Present Illness - Stated complaint Stated Complaint: FEMALE - Chief complaint Chief Complaint: UTI - History obtained from History obtained from: Patient, Family - Additonal information Additional information: The patient is brought to the emergency department by caregiver for chief complaint of bleeding. Caregiver states that the patient had just changed her depends after urinating when she stood up and some clots came out. They are pretty sure they were not coming from the rectum, but were not sure if the blood was from the vagina or the urethra. Patient denies any dysuria. She has not had any bleeding leading up to this, either with urination or spontaneously onto her depends in between urination. She denies any fevers or chills. No nausea or vomiting. No abdominal pain. The patient is anticoagulated, but is not bleeding from anywhere else. Her family reports that she has had A total hysterectomy. No other complaints at this time. Review of Systems Ten Systems: 10 systems reviewed and negative Constitutional: reports: Reviewed and negative Eyes: reports: Reviewed and negative Ears: reports: Reviewed and negative Nose: reports: Reviewed and negative Throat: reports: Reviewed and negative Cardiac: reports: Reviewed and negative Respiratory: reports: Reviewed and negative GI: reports: Reviewed and negative : reports: Hematuria Skin: reports: Reviewed and negative Musculoskeletal: reports: Reviewed and negative Neurologic: reports: Reviewed and negative Psychiatric: reports: Reviewed and negative Endocrine: reports: Reviewed and negative Immunocompromised: reports: Reviewed and negative PD PAST MEDICAL HISTORY - Past Medical History Cardiovascular: Hypertension, High cholesterol Respiratory: Sleep apnea Neuro: CVA Endocrine/Autoimmune: Type 2 diabetes GI: GERD, Hemorrhoids SERVICE EMPLOYEE: Other : Incontinence, Other HEENT: Chronic vision loss Psych: Depression Musculoskeletal: Hemiplegia Derm: None - Past Surgical History Past Surgical History: Yes General: Colonoscopy, Other /SERVICE EMPLOYEE: Hysterectomy, Oophrectomy HEENT: Tonsil/Adenoidectomy - Present Medications Home Medications: Ambulatory Orders Medication Instructions Recorded Confirmed Acetaminophen [Pain Relief] 500 mg PO Q4H PRN 05/19/16 04/16/22 Cholecalciferol (Vitamin D3) 800 units PO DAILY 05/19/16 04/16/22 [Vitamin D3] Citalopram [CeleXA] 40 mg PO DAILY 05/19/16 04/16/22 Fluticasone [Flonase] 1 spray INH DAILY PRN 05/19/16 04/14/22 Insulin Glargine [Lantus] 10 unit SUBQ QPM 05/19/16 04/14/22 Lisinopril [Zestril] 40 mg PO DAILY 05/19/16 04/16/22 Loratadine [Claritin] 10 mg PO DAILY 05/19/16 04/16/22 Sennosides [Senna] 8.6 mg PO DAILY PRN 05/19/16 04/16/22 Simvastatin [Zocor] 40 mg PO QPM 05/19/16 04/16/22 buPROPion [Wellbutrin Sr] 100 mg PO BID 05/19/16 04/16/22 polyethylene glycoL 3350 [Miralax] 17 gm PO DAILY PRN 05/19/16 04/16/22 Loperamide [Imodium] 2 mg PO QID PRN #10 capsule MDD 8 03/03/17 04/16/22 tabs Anusol/Hydrocortisone Rectal Cream 1 each TOP DAILY PRN 03/26/17 04/16/22 metFORMIN [Glucophage] 500 mg PO .QAM 07/20/18 04/16/22 Docusate Sodium 200 mg PO BID PRN 12/14/18 04/16/22 Memantine HCl [Namenda Xr] 21 mg PO DAILY 08/13/20 04/16/22 Metoprolol Succinate [Toprol Xl] 50 mg PO DAILY PM 08/13/20 04/16/22 Apixaban [Eliquis] 5 mg PO BID #60 tab 08/14/20 04/16/22 Sulfamethox/Trimeth 800/160 1 each PO BID #14 tablet 04/14/22 04/16/22 [Bactrim Ds 800/160] Omeprazole 40 mg PO DAILY 04/16/22 04/16/22 - Allergies Allergies/Adverse Reactions: Allergies Allergy/AdvReac Type Severity Reaction Status Date / Time Penicillins Allergy Anaphylaxis Verified 04/16/22 12:34 - Social History Does the pt smoke?: No Smoking Status: Never smoker Does the pt drink ETOH?: No Does the pt have substance abuse?: No - Immunizations Immunizations are current?: Yes - POLST Patient has POLST: Yes PD ED PE NORMAL - Vitals Vital signs reviewed: Yes - General General: Alert and oriented X 3, No acute distress, Well developed/nourished - HEENT HEENT: Atraumatic, PERRL, EOMI, Moist mucous membranes - Neck Neck: Supple, no meningeal sign - Cardiac Cardiac: RRR, No murmur, Strong equal pulses - Respiratory Respiratory: No respiratory distress, Clear bilaterally - Abdomen Abdomen: Soft, Non tender, Non distended - Female Female : Shooter'S Helper present, Other (Normal female genitalia. No trauma. No pain or mass on examination. Vagina palpably ends in a blind pouch.) - Derm Derm: Normal color, Warm and dry, No rash - Extremities Extremities: No deformity, No edema - Neuro Neuro: Other (Alert, answers questions appropriately.) - Psych Psych: Normal mood, Normal affect Results - Vitals Vitals: Oxygen O2 Source Room air - Labs Labs: Microbiology 04/14/22 08:30 Urine Culture - Final Urine,Catheterized Escherichia Coli Laboratory Tests 04/14/22 08:30 Urine Color YELLOW Urine Clarity SL. CLOUDY Urine pH 6.0 Ur Specific Heber >=1.030 H Urine Protein TRACE Urine Glucose (UA) NEGATIVE Urine Ketones NEGATIVE Urine Occult Blood NEGATIVE Urine Nitrite POSITIVE H Urine Bilirubin NEGATIVE Urine Urobilinogen 1 (NORMAL) Ur Leukocyte Esterase MODERATE H Urine RBC None Seen Urine WBC >25 H Urine WBC Clumps PRESENT Ur Epithelial Cells FEW Transitional Ur Squamous Epith Cells RARE Squamous Urine Bacteria Few Ur Microscopic Review INDICATED Urine Culture Comments INDICATED PD MEDICAL DECISION MAKING - ED course Complexity details: reviewed results, re-evaluated patient, considered differential, d/w patient ED course: Patient was found to have a urinary tract infection on urinalysis. I discussed with her that we will treat this at this time, but that she should follow-up for reevaluation, should her bleeding continue. The patient is well-appearing and stable for discharge home. Departure - Departure Disposition: 01 Home, Self Care Clinical Impression: Urinary tract infection Qualifiers: Urinary tract infection type: acute cystitis Hematuria presence: without hematuria Qualified Code(s): N30.00 - Acute cystitis without hematuria Condition: Stable Instructions: ED UTI Cystitis Female Prescriptions: Sulfamethox/Trimeth 800/160 [Bactrim Ds 800/160] 1 each PO BID #14 tablet Comments: You have a very small amount of bloody residue around your genital area and the open anterior vagina. Since all of your female organs have been removed, there is not much source for potential bleeding from your vagina. A vaginal exam has been performed and there is no palpable mass or abnormality, considering your surgical history. Your urinalysis is positive for urinary tract infection, and you have been started on antibiotics for this. A prescription for the antibiotics has been electronically transmitted to the [facility] pharmacy in [place], your pharmacy of choice on record. The urinalysis is negative for blood. The bleeding source is not entirely clear, though it could be coming from a small skin tear or raw spot in the area. This can sometimes happen when a person is on blood thinners and is more prone to bleeding. If you continue to notice blood in the area for more than the next several days, you should have her primary care physician follow-up and further evaluate this. Discharge Date/Time: 04/14/22 09:47
[2022-04-14 08:37] LABS: BILIRUBIN,URINE NEGATIVE (NEGATIVE); GLUCOSE, URINE (UA) NEGATIVE (NEGATIVE); KETONES,URINE (UA) NEGATIVE (NEGATIVE); LEUKOCYTE ESTERASE, URINE MODERATE (NEGATIVE); NITRITE,URINE POSITIVE (NEGATIVE); OCCULT BLOOD,URINE NEGATIVE (NEGATIVE); PROTEIN,URINE TRACE mg/dL (NEGATIVE); UROBILINOGEN,URINE 1 (NORMAL) E.U./dL (NORMAL)
[2022-04-14 08:38] LABS: CLARITY,URINE SL. CLOUDY (CLEAR)
[2022-04-14 08:45] LABS: BACTERIA,URINE Few /HPF (None Seen); EPITHELIAL CELLS,UR FEW Transitional /HPF (<= Few); RBC,URINE None Seen /HPF (0-5); SQUAMOUS EPITHELIAL CELL,UR RARE Squamous (<= Few); WBC CLUMPS,URINE PRESENT; WBC,URINE >25 /HPF (0-5)
[2022-04-14] MEDS ORDERED: SULFAMETH/TRIMETH DS 800/160 MG TABLET PO STA (09:28)
== END 2022-04-14 09:47 | disposition home or self-care (01) ==
LOC: ED 07:35
DX: N30.00 Acute cystitis without hematuria (principal); I10 Essential (primary) hypertension; E11.9 Type 2 diabetes mellitus without complications; Z79.4 Long term (current) use of insulin; Z79.84 Long term (current) use of oral hypoglycemic drugs
CPT/HCPCS: 81001; 87086; 87181; 99283; A9270; 81003

== ENCOUNTER 2022-04-16 12:26 | Emergency (ER) | payer MEDICARE, MEDICAID ==
[2022-04-16] MEDS ORDERED: ACETAMINOPHEN 500 MG TABLET PO STA (12:35)
--- NOTE | 2022-04-16 12:36 | ED Physician Documentation ---
PD HPI Fall - Stated complaint Stated Complaint: FALL - History obtained from History obtained from: Patient, EMS - Additional information Additional information: 71-year-old woman with history of A. fib, newly on Eliquis, history of stroke, type 2 diabetes was doing exercises sitting in a chair and fell to the left side. She did not lose consciousness and there was no syncope. She hit her left forehead on the ground with a moderate headache. No other injuries. 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: Hysterectomy, Oophrectomy HEENT: Tonsil/Adenoidectomy - Present Medications Home Medications: Ambulatory Orders Medication Instructions Recorded Confirmed Acetaminophen [Pain Relief] 500 mg PO Q4H PRN 05/19/16 04/16/22 Cholecalciferol (Vitamin D3) 800 units PO DAILY 05/19/16 04/16/22 [Vitamin D3] Citalopram [CeleXA] 40 mg PO DAILY 05/19/16 04/16/22 Fluticasone [Flonase] 1 spray INH DAILY PRN 05/19/16 04/14/22 Insulin Glargine [Lantus] 10 unit SUBQ QPM 05/19/16 04/14/22 Lisinopril [Zestril] 40 mg PO DAILY 05/19/16 04/16/22 Loratadine [Claritin] 10 mg PO DAILY 05/19/16 04/16/22 Sennosides [Senna] 8.6 mg PO DAILY PRN 05/19/16 04/16/22 Simvastatin [Zocor] 40 mg PO QPM 05/19/16 04/16/22 buPROPion [Wellbutrin Sr] 100 mg PO BID 05/19/16 04/16/22 polyethylene glycoL 3350 [Miralax] 17 gm PO DAILY PRN 05/19/16 04/16/22 Loperamide [Imodium] 2 mg PO QID PRN #10 capsule MDD 8 03/03/17 04/16/22 tabs Anusol/Hydrocortisone Rectal Cream 1 each TOP DAILY PRN 03/26/17 04/16/22 metFORMIN [Glucophage] 500 mg PO .QAM 07/20/18 04/16/22 Docusate Sodium 200 mg PO BID PRN 12/14/18 04/16/22 Memantine HCl [Namenda Xr] 21 mg PO DAILY 08/13/20 04/16/22 Metoprolol Succinate [Toprol Xl] 50 mg PO DAILY PM 08/13/20 04/16/22 Apixaban [Eliquis] 5 mg PO BID #60 tab 08/14/20 04/16/22 Sulfamethox/Trimeth 800/160 1 each PO BID #14 tablet 04/14/22 04/16/22 [Bactrim Ds 800/160] Omeprazole 40 mg PO DAILY 04/16/22 04/16/22 - Allergies Allergies/Adverse Reactions: Allergies Allergy/AdvReac Type Severity Reaction Status Date / Time Penicillins Allergy Anaphylaxis Verified 04/16/22 12:34 - Social History Does the pt smoke?: No Smoking Status: Never smoker Does the pt drink ETOH?: No Does the pt have substance abuse?: No - Immunizations Immunizations are current?: Yes - POLST Patient has POLST: Yes PD ED PE NORMAL - Vitals Vital signs reviewed: Yes - General General: Alert and oriented X 3, No acute distress - HEENT HEENT: PERRL, EOMI, Other (There is a small bruise/ecchymosis on the left forehead just above the lateral left eyebrow.) - Neck Neck: Supple, no meningeal sign, No bony TTP - Back Back: No CVA TTP, No spinal TTP - Derm Derm: Normal color, Warm and dry - Neuro Neuro: Alert and oriented X 3, Normal speech, Other (Deficits in the left upper extremity from prior stroke. She states these are not worse than prior.) Eye Opening: Spontaneous Motor: Obeys Commands Results - Vitals Vitals: Vital Signs - 24 hr 04/16/22 04/16/22 12:34 13:17 Temperature 35.2 C L 37.2 C Heart Rate 67 61 Respiratory 18 16 Rate Blood Pressure 142/86 H 133/73 H O2 Saturation 96 96 Oxygen O2 Source Room air - Rads (name of study) CT of the head and cervical spine are without acute trauma. She does have evidence of prior strokes. Radiology: EMP read contemporaneously Departure - Departure Disposition: Home, Self Care Clinical Impression: Fall from chair, Head injury, Adequate anticoagulation on anticoagulant therapy Condition: Good Record reviewed to determine appropriate education?: Yes Instructions: ED Head Injury Closed Comments: Call your doctor to arrange a follow-up appointment, make the next available appointment. In the interim, return anytime if worse or if new symptoms develop.
--- NOTE | 2022-04-16 13:14 | CT Report ---
PROCEDURE: HEAD WO INDICATIONS: Head injury, anticoagulated TECHNIQUE: Noncontrast 4.5 mm thick angled axial sections acquired from the foramen magnum to the vertex. For r adiation dose reduction, the following was used: automated exposure control, adjustment of mA and/or kV according to patient size. COMPARISON: Head CT 08/13/2020. FINDINGS: Image quality: Excellent. CSF spaces: Basal cisterns are patent. No extra-axial fluid collections. Ventricles are normal in size and shape. Brain: No midline shift. No intracranial masses or hemorrhage. No definite evidence of an acute inf arct in a major vascular territory by CT. Large chronic infarcts present bilaterally as before. Skull and face: Calvarium and visualized facial bones are intact, without suspicious lesions. Sinuses: Visualized sinuses and mastoids are clear. IMPRESSION: No intracranial hemorrhage or other acute intracranial abnormality. Reviewed by: Les Carpio MD on 04/16/2022 1:12 PM PDT Approved by: Les Carpio MD on 04/16/2022 1:12 PM PDT Station ID: [id number]
[2022-04-16 13:17] VITALS: BP 133/73
--- NOTE | 2022-04-16 13:19 | CT Report ---
PROCEDURE: CERVICAL SPINE WO INDICATIONS: Head injury, anticoagulated TECHNIQUE: Noncontrast 3 mm thick sections acquired from the skull base to the T4 level. Sagittal and coronal r eformats were then constructed. For radiation dose reduction, the following was used: automated exp osure control, adjustment of mA and/or kV according to patient size. COMPARISON: None. FINDINGS: Image quality: adequate. Bones: No acute fractures or dislocations. Visualized superior ribs are intact. Soft tissues: Prevertebral soft tissues are normal in thickness. No paravertebral hematomas. No ap ical pneumothoraces. IMPRESSION: No acute cervical spine fracture visualized. Reviewed by: Les Carpio MD on 04/16/2022 1:18 PM PDT Approved by: Les Carpio MD on 04/16/2022 1:18 PM PDT Station ID: [id number]
== END 2022-04-16 14:30 | disposition home or self-care (01) ==
LOC: EDUNIT# → ED 12:26
DX: S09.90XA Unspecified injury of head, initial encounter (principal); W07.XXXA Fall from chair, initial encounter; Y93.B9 Activity, other involving muscle strengthening exercises; E11.9 Type 2 diabetes mellitus without complications; Z79.84 Long term (current) use of oral hypoglycemic drugs; Z79.01 Long term (current) use of anticoagulants
CPT/HCPCS: 70450; 72125; 99282; 99284; A9270

== ENCOUNTER 2022-10-30 10:45 | Outpatient (CLI) | payer MEDICARE, MEDICAID ==
[2022-10-30 11:06] LABS: BASOPHILS # (AUTO) 0.1 10^3/uL (0.0-0.1); BASOPHILS % (AUTO) 1.4 %; EOSINOPHILS # (AUTO) 0.3 10^3/uL (0.0-0.7); EOSINOPHILS % (AUTO) 3.2 %; HCT - HEMATOCRIT 43.7 % (37.0-47.0); HGB - HEMOGLOBIN 13.8 g/dL (12.0-16.0); LYMPHOCYTES # (AUTO) 2.6 10^3/uL (1.5-3.5); LYMPHOCYTES % (AUTO) 32.1 %; MEAN CORPUSCULAR HEMOGLOBIN 32.4 pg (27.0-31.0); MEAN CORPUSCULAR HGB CONC 31.6 g/dL (32.0-36.0); MEAN CORPUSCULAR VOLUME 102.6 fL (81.0-99.0); MEAN PLATELET VOLUME 10.1 fL (7.9-10.8); MONOCYTES # (AUTO) 0.8 10^3/uL (0.0-1.0); MONOCYTES % (AUTO) 9.6 %; NEUTROPHILS # (AUTO) 4.3 10^3/uL (1.5-6.6); NEUTROPHILS % (AUTO) 53.5 %; PLT - PLATELET COUNT 280 10^3/uL (130-450); RED BLOOD COUNT 4.26 10^6/uL (4.20-5.40); RED CELL DISTRIBUTION WIDTH 14.1 % (12.0-15.0); WHITE BLOOD COUNT 8.1 x10^3/uL (4.8-10.8)
[2022-10-30 11:16] LABS: CALCIUM 9.6 mg/dL (8.5-10.3); CREATININE 1.2 mg/dL (0.4-1.0); POTASSIUM 4.4 mmol/L (3.5-5.0)
[2022-10-30 12:22] LABS: ESTIMATED AVERAGE GLUCOSE 140 mg/dL (70-100); HEMOGLOBIN A1c% 6.5 % (4.27-6.07)
== END 2022-10-30 10:46 | disposition home or self-care (01) ==
LOC: LAB 10:45
PROVIDERS: ATTEND Nurse Practitioner Family
DX: I10 Essential (primary) hypertension (principal); E11.9 Type 2 diabetes mellitus without complications
CPT/HCPCS: 36415; 80048; 83036; 85025

== ENCOUNTER 2023-05-21 09:39 | Outpatient (CLI) | payer MEDICARE, MEDICAID | END 2023-05-21 09:40 | disposition home or self-care (01) | LOC: LAB.N 09:39 | PROVIDERS: ATTEND Family Medicine | DX: Z53.9 Procedure and treatment not carried out, unspecified reason (principal) ==